=== PATIENT | male | born 1980 | race Caucasian/White ===

== ENCOUNTER 2020-11-19 14:09 | Emergency (ER) | payer MEDICAID, SELFPAY ==
--- NOTE | ~2020-11-19 | XR_ITS ---
EXAMINATION: XR HAND, LEFT CLINICAL INFORMATION: Fifth digit pain. Fall injury. COMPARISON: None TECHNIQUE: PA, lateral, and oblique views of the left hand. FINDINGS: Ulnar and dorsal dislocation of the fifth middle phalanx at the fifth PIP joint. Associated tiny avulsion injury at the dorsal base of the fifth middle phalanx. Avulsion injury may reflect injury to the central slip of the fifth extensor tendon. Soft tissue swelling of the fifth digit. No radiopaque foreign body. XR/XR hand LT min 3V IMPRESSION: Left hand: Ulnar and dorsal location of the fifth middle phalanx from the PIP joint. Tiny avulsion fracture at the dorsal base of the fifth phalanx may reflect injury to the central slip of the fifth extensor tendon.
--- NOTE | ~2020-11-19 | XR_ITS ---
EXAMINATION: XR HAND, LEFT CLINICAL INFORMATION: Status post reduction left fifth finger COMPARISON: Left hand radiographs earlier today at 3:27 PM TECHNIQUE: PA, lateral, and oblique views of the left hand. FINDINGS: Post reduction films demonstrate that the previous dislocation at the right fifth PIP joint is no longer present. The bones and soft tissues are now normal. No fracture. Alignment is anatomic. Joint spaces are maintained. No erosions or soft tissue calcifications. XR/XR hand LT min 3V IMPRESSION: Successful reduction of dislocation with no residual abnormality seen
[2020-11-19 15:14] VITALS: BP 136/81; PULSE 67; RESP 16; TEMP 36.6; O2SAT 99; BMI 29.8
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
[2020-11-19] MEDS: Diphth,Pertus(ACell),Tet Adult 0.5 ML SYRINGE IM (18:11)
== END 2020-11-19 18:30 | disposition home or self-care (01) ==
PROVIDERS: Emergency Provider Emergency Medicine
DX: S63.257A Unspecified dislocation of left little finger, initial encounter (principal); S62.347A Nondisplaced fracture of base of fifth metacarpal bone, left hand, initial encounter for closed fracture; S01.81XA Laceration without foreign body of other part of head, initial encounter; V93.33XA Fall on board other powered watercraft, initial encounter; V92.03XA Drowning and submersion due to fall off other powered watercraft, initial encounter; Y93.19 Activity, other involving water and watercraft; Y92.89 Other specified places as the place of occurrence of the external cause; Y99.9 Unspecified external cause status
CPT/HCPCS: 26770; 73130; 90471; 90715; 99283; 99284

== ENCOUNTER 2020-12-19 08:26 | Emergency (ER) | payer MEDICAID, SELFPAY ==
--- NOTE | ~2020-12-19 | XR_ITS ---
EXAMINATION: XR CHEST CLINICAL INFORMATION: Chest pain. COMPARISON: None TECHNIQUE: Frontal view of the chest was obtained. FINDINGS: No significant abnormality is noted involving the heart, lungs, mediastinum, bony thorax or soft tissues. XR/XR chest 1V IMPRESSION: No acute cardiopulmonary process.
[2020-12-19 10:30] VITALS: BP 146/74; PULSE 52; RESP 18; TEMP 37.1; O2SAT 100; BMI 28.5
--- NOTE | 2020-12-19 10:30 | ED.NAVMDI ---
HPI - Nausea/Vomiting/Diarrhea General Chief complaint: Abdominal Pain Stated complaint: vomiting, multiple complaints Time Seen by Provider: 12/19/20 10:30 Source: patient Mode of arrival: ambulatory Limitations: no limitations History of Present Illness HPI Narrative: 40 yo male otherwise healthy here with nausea and vomiting and epigastric pain since yesterday he c/o abdominal pain as well as burning in throat. He did drink heavily on Friday MD elicited complaint: nausea, vomiting and abdominal pain Pertinent past history: other (drank heavily on Friday) Onset (ago): day(s) (1) Description of vomiting: food contents Associated nausea: Yes Associated abdominal pain: Yes Location of pain: epigastric Radiation: diffuse Pain consistency: constant Severity: moderate Quality: aching and other (burning) Exacerbating factors: eating Relieving factors: none Context: other (heavy ETOH drinking) Associated symptoms: chest pain (burning in chest) Related Data Previous Rx's Medication Instructions Recorded ibuprofen 600 mg tablet 600 mg PO Q6H PRN #60 tab 11/19/20 famotidine 20 mg tablet (Pepcid) 20 mg PO DAILY PRN #30 tab 12/19/20 ondansetron 4 mg disintegrating 4 mg PO Q8H PRN #20 tab 12/19/20 tablet Allergies Allergy/AdvReac Type Severity Reaction Status Date / Time No Known Allergies Allergy Unverified 01/13/20 15:18 [No Known Allergies*] Review of Systems Review of Systems: Constitutional : No Weight loss, No Fever, No Chills ENT/Mouth : No sore throat, No Rhinorrhea Eyes: No Swelling, No Redness Cardiovascular : No Chest Pain, No SOB, NoEdema Respiratory : No Cough, No Sputum, No Wheezing Gastrointestinal : Positive Nausea, Positive Vomiting, positive Diarrhea, positive abdominal Pain, No Hematochezia, No Melena Genitourinary : No Dysuria, No Urinary Frequency, No Hematuria, No Urgency Musculoskeletal : No joint pain, No Myalgias, No Joint Swelling Skin : No Skin Lesions, No rash Neuro : No Weakness, No Numbness, No Dizziness, No Headache Psych : No Anxiety/Panic, No Depression Heme/Lymph: No Bruising, No Lymphadenopathy Endocrine : No Polyuria, No Polydipsia All other systems reviewed and are negative. Gastrointestinal: Gastrointestinal: Reports nausea PMFSH Past Medical History Attestation statement: The following information was validated with the patient. Medical History No known health problems Surgical History Hx of appendectomy Social History Social History Alcohol intake: current Alcohol intake frequency: a few times a month Patient Tobacco Use Status: Never used Tobacco Use of substances other than those prescribed or required for medical reasons: No Advance Directives: No Advance Directives Information Provided: No Physical Exam Vital Signs: Vital Signs: Last Vital Signs Temp 98.8 F 12/19/20 10:30 Pulse 58 12/19/20 13:12 Resp 18 12/19/20 13:12 BP 120/61 12/19/20 13:12 Pulse Ox 99 12/19/20 13:12 Body Mass Index 28.5 Appearance: Alert. Oriented X3. No acute distress. Eyes: Pupils equal, round and reactive to light. ENT: Pharynx mild dry MM Neck: Normal inspection. Neck supple. CVS: Normal heart rate and rhythm. Pulses normal. Respiratory: No respiratory distress. Breath sounds normal. Abdomen: Soft and mild diffuse ttp no connell's sign Skin: Skin warm and dry. Normal skin color. Normal skin turgor. Extremities: No lower extremity edema. No calf ttp Neuro: Oriented X 3. No motor deficit. No sensory deficit. Course Course Course Narrative: stable for DC feels much better at this time MDM - Nausea/Vomiting/Diarrhea MDM Narrative Medical decision making narrative: 40 yo male with recent heavy drinking now with vomiting and epigastric pain possible pancreatitis vs ETOH gastritis c/o burning chest pain likely esophagitis - CXR ordered doubt pneumomediastinum, IVF, reassessments dispo per results and findings. Lab Data Result diagrams: 12/19/20 10:53 12/19/20 10:53 Labs: Lab Results 12/19/20 12/19/20 12/19/20 Range/Units 10:53 10:53 10:53 WBC 10.0 (4.8-10.8) X10*3/uL RBC 5.15 (4.60-5.80) X10*6/uL Hgb 15.2 (14.0-18.0) g/dl Hct 44.5 (42-52) % MCV 86.4 (80-98) fL MCH 29.5 (27.0-33.0) pg MCHC 34.2 (31.0-36.0) g/dl RDW 12.3 (11.0-16.0) % Plt Count 351 (160-400) X10*3/uL MPV 9.8 (9.4-12.4) fL Immature Gran % (Auto) 0.3 (0.0-0.4) % Neut % (Auto) 74.3 H (45-73) % Lymph % (Auto) 18.4 L (20-40) % Forrest % (Auto) 6.9 (2-11) % Eos % (Auto) 0.0 (0-4) % Baso % (Auto) 0.1 (0-2) % Lymph # (Auto) 1.8 (1.2-4.9) X10*3/uL Forrest # (Auto) 0.7 (0.1-1.2) X10*3/uL Eos # (Auto) 0.0 (0.0-0.4) X10*3/uL Baso # (Auto) 0.0 (0.0-0.2) X10*3/uL Abs Immat Gran (auto) 0.03 (0.00-0.03) X10*3/uL Absolute Neuts (auto) 7.4 (2.0-8.3) X10*3/uL Absolute Nucleated RBC 0.000 (0.0-0.012) X10*3/uL Nucleated RBC % (auto) 0.0 (0.0-0.2) /100WBC Sodium 143 (135-145) mmol/L Potassium 4.3 (3.3-5.1) mmol/L Chloride 106 (96-108) mmol/L Carbon Dioxide 23 (22-29) mmol/L Anion Gap 18 (12-20) BUN 11 (9-16) mg/dL Creatinine 1.44 H (0.5-1.4) mg/dL Estim Creat Clear Calc 80.8 Estimated GFR 54 Random Glucose 121 H (60-115) mg/dL Calcium 10.6 H (8.4-10.2) mg/dL Magnesium 2.5 (1.6-2.6) mg/dL Total Bilirubin 1.3 H (0.0-1.0) mg/dL Direct Bilirubin 0.5 (0.0-0.5) mg/dL AST 21 (5-37) U/L ALT 22 (0-40) U/L Alkaline Phosphatase 75 (39-117) U/L Total Protein 8.5 H (6.5-8.0) g/dL Albumin 5.1 H (3.5-5.0) g/dL Lipase 39 (8-78) U/L COVID-19 ([facility]) (Negative) COVID-19 Clin Com 12/19/20 Range/Units 11:03 WBC (4.8-10.8) X10*3/uL RBC (4.60-5.80) X10*6/uL Hgb (14.0-18.0) g/dl Hct (42-52) % MCV (80-98) fL MCH (27.0-33.0) pg MCHC (31.0-36.0) g/dl RDW (11.0-16.0) % Plt Count (160-400) X10*3/uL MPV (9.4-12.4) fL Immature Gran % (Auto) (0.0-0.4) % Neut % (Auto) (45-73) % Lymph % (Auto) (20-40) % Forrest % (Auto) (2-11) % Eos % (Auto) (0-4) % Baso % (Auto) (0-2) % Lymph # (Auto) (1.2-4.9) X10*3/uL Forrest # (Auto) (0.1-1.2) X10*3/uL Eos # (Auto) (0.0-0.4) X10*3/uL Baso # (Auto) (0.0-0.2) X10*3/uL Abs Immat Gran (auto) (0.00-0.03) X10*3/uL Absolute Neuts (auto) (2.0-8.3) X10*3/uL Absolute Nucleated RBC (0.0-0.012) X10*3/uL Nucleated RBC % (auto) (0.0-0.2) /100WBC Sodium (135-145) mmol/L Potassium (3.3-5.1) mmol/L Chloride (96-108) mmol/L Carbon Dioxide (22-29) mmol/L Anion Gap (12-20) BUN (9-16) mg/dL Creatinine (0.5-1.4) mg/dL Estim Creat Clear Calc Estimated GFR Random Glucose (60-115) mg/dL Calcium (8.4-10.2) mg/dL Magnesium (1.6-2.6) mg/dL Total Bilirubin (0.0-1.0) mg/dL Direct Bilirubin (0.0-0.5) mg/dL AST (5-37) U/L ALT (0-40) U/L Alkaline Phosphatase (39-117) U/L Total Protein (6.5-8.0) g/dL Albumin (3.5-5.0) g/dL Lipase (8-78) U/L COVID-19 ([facility]) Negative (Negative) COVID-19 Clin Com See Note Discharge Plan Discharge Clinical Impression: Acute dehydration Gastritis Qualifiers: Gastritis type: alcoholic Chronicity: acute Gastritis bleeding: without bleeding Qualified Code(s): K29.20 - Alcoholic gastritis without bleeding Vomiting Qualifiers: Vomiting type: unspecified Vomiting Intractability: non-intractable Nausea presence: with nausea Qualified Code(s): R11.2 - Nausea with vomiting, unspecified Patient Disposition: Home, Self-Care Instructions: Gastritis (ED), Dehydration (ED), Acute Nausea and Vomiting (ED) Additional Instructions: return to ED for any worsening symptoms or concerns drink plenty of fluids Prescriptions: New famotidine [Pepcid] 20 mg tablet 20 mg PO DAILY PRN (Reason: abdominal discomfort) Qty: 30 RF: 0 ondansetron 4 mg tablet,disintegrating 4 mg PO Q8H PRN (Reason: nausea and vomiting) Qty: 20 RF: 0 No Action ibuprofen 600 mg tablet 600 mg PO Q6H PRN (Reason: pain) Qty: 60 RF: 0 Stand Alone Forms: Work/School Release
[2020-12-19 10:57] LABS: MANUAL DIFF FLAG NO
[2020-12-19 11:01] LABS: Basophils Percent Auto 0.1 % (0-2); Hematocrit 44.5 % (42-52); Hemoglobin 15.2 g/dl (14.0-18.0); Imm Gran Abs Auto 0.03 X10*3/uL (0.00-0.03); Imm Gran Pct Auto 0.3 % (0.0-0.4); Lymphocytes Absolute Auto 1.8 X10*3/uL (1.2-4.9); Lymphocytes Percent Auto 18.4 % (20-40); Mean Corpuscular HGB Conc 34.2 g/dl (31.0-36.0); Mean Corpuscular Hemoglobin 29.5 pg (27.0-33.0); Mean Corpuscular Volume 86.4 fL (80-98); Mean Platelet Volume 9.8 fL (9.4-12.4); Monocytes Absolute Auto 0.7 X10*3/uL (0.1-1.2); Monocytes Percent Auto 6.9 % (2-11); Neutrophils Absolute Auto 7.4 X10*3/uL (2.0-8.3); Neutrophils Percent Auto 74.3 % (45-73); Platelet Count 351 X10*3/uL (160-400); Red Blood Count 5.15 X10*6/uL (4.60-5.80); Red Cell Distribution Width 12.3 % (11.0-16.0)
[2020-12-19 11:29] LABS: Alanine Aminotransferase 22 U/L (0-40); Albumin Level 5.1 g/dL (3.5-5.0); Alkaline Phosphatase 75 U/L (39-117); Aspartate Amino Transferase 21 U/L (5-37); Bilirubin Direct 0.5 mg/dL (0.0-0.5); Bilirubin Total 1.3 mg/dL (0.0-1.0); Lipase 39 U/L (8-78); Magnesium 2.5 mg/dL (1.6-2.6); Total Protein 8.5 g/dL (6.5-8.0)
[2020-12-19] MEDS: ondansetron HCL 4 MG/2 ML VIAL IVPUSH (11:30)
[2020-12-19] MEDS: Morphine Sulfate 4 MG/ML CARTRIDGE IVPUSH (11:30)
[2020-12-19] MEDS: Famotidine/PF 20 MG/2 ML VIAL IVPUSH (11:30)
[2020-12-19] MEDS: Lactated Ringers 1,000 ML 999 ML IV ×2 (11:30→13:10)
[2020-12-19 11:34] LABS: Anion Gap 18 (12-20); Blood Urea Nitrogen 11 mg/dL (9-16); Carbon Dioxide 23 mmol/L (22-29); Chloride 106 mmol/L (96-108); Creatinine Clr Calc Pharmacy 80.8; Estimated Glomerular Filt Rate 54; Glucose Random 121 mg/dL (60-115); Potassium 4.3 mmol/L (3.3-5.1); Sodium 143 mmol/L (135-145)
[2020-12-19 11:40] LABS: COVID-19 Test Negative (Negative)
[2020-12-19 11:41] LABS: Calcium 10.6 mg/dL (8.4-10.2)
[2020-12-19] MEDS: Metoclopramide HCl 10 MG/2 ML VIAL IVPUSH (13:02)
[2020-12-19] MEDS: Lidocaine HCl Viscous 2 % 15 ML SOLUTION MUCOUS MEM (13:02)
[2020-12-19] MEDS: diphenhydrAMINE HCL 50 MG/ML VIAL 25 MG IVPUSH (13:02)
--- NOTE | 2020-12-19 13:11 | PC.NURSE ---
Pt continued to have a headache. Rglan and benedryl given.
[2020-12-19 13:12] VITALS: BP 120/61; PULSE 58; RESP 18; O2SAT 99
== END 2020-12-19 14:50 | disposition home or self-care (01) ==
PROVIDERS: Emergency Provider Emergency Medicine
DX: K29.20 Alcoholic gastritis without bleeding (principal); R11.2 Nausea with vomiting, unspecified; Z20.822 Contact with and (suspected) exposure to COVID-19; R10.13 Epigastric pain
CPT/HCPCS: 36415; 71045; 80048; 80076; 83690; 83735; 85025; 87635; 96361; 96374; 96375; 99284; J1200; J2270; J2405; J2765

== ENCOUNTER 2021-01-07 17:41 | Emergency (ER) | payer MEDICAID, SELFPAY ==
--- NOTE | ~2021-01-07 | CT_ITS ---
EXAMINATION: CT ABDOMEN AND PELVIS WITH CONTRAST CLINICAL INFORMATION: Epigastric/left upper quadrant pain. Suspect pancreatitis. COMPARISON: None TECHNIQUE: Multidetector volumetric images were obtained from the superior aspect of the liver through the pubic symphysis following administration 85 mL of Omnipaque 350 intravenous contrast. Sagittal and coronal reformatted images were obtained on the technologist's workstation. Oral contrast: No This CT examination was performed using dose optimization techniques as appropriate, variously including the following: *Automated exposure control *Adjustment of mA and/or kV according to patient size (this includes techniques or standardized protocols for targeted exams where dose is matched to indication/reason for exam; i.e. extremities or head) *Use of iterative reconstruction technique DLP: 629 mGy-cm FINDINGS: LUNG BASES: The visualized lung bases are unremarkable. LIVER, GALLBLADDER, AND BILIARY TREE: The liver is normal in size, shape, and attenuation. No focal hepatic lesion or biliary ductal dilatation is present. Gallbladder unremarkable. PANCREAS: Unremarkable. SPLEEN: Unremarkable. ADRENAL GLANDS: Unremarkable. KIDNEYS AND URETERS: The kidneys are normal in size, shape, and attenuation. No hydronephrosis, hydroureter, or calculi seen. No perinephric stranding. BLADDER: Unremarkable. GASTROINTESTINAL TRACT: Stomach, small and large bowel are unremarkable. Appendix not seen, presumably surgically absent. ABDOMINAL WALL: No significant hernia is appreciated. LYMPH NODES: Normal. VASCULAR: Unremarkable. PELVIC VISCERA: Unremarkable. OSSEOUS STRUCTURES: Unremarkable. CT/CT abdomen pelvis w con IMPRESSION: * Normal CT imaging appearance of the pancreas. Please note that CT does not exclude mild or very early pancreatitis. * Unremarkable exam.
[2021-01-07 23:59] VITALS: BP 143/77; PULSE 99; O2SAT 97
--- NOTE | 2021-01-08 00:03 | PC.NURSE ---
EMS handoff and first nurse assessment charted by this RN erroneously, information applies to other pt. see documentation by Rosina GALLAGHER for correct triage info
[2021-01-08 00:04] VITALS: BP 133/75; PULSE 61; RESP 18; O2SAT 98; BMI 29.9
[2021-01-08 00:21] LABS: MANUAL DIFF FLAG NO
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
[2021-01-08 00:22] LABS: Basophils Percent Auto 0.2 % (0-2); Eosinophils Absolute Auto 0.1 X10*3/uL (0.0-0.4); Eosinophils Percent Auto 0.9 % (0-4); Hematocrit 38.1 % (42-52); Hemoglobin 12.9 g/dl (14.0-18.0); Imm Gran Abs Auto 0.02 X10*3/uL (0.00-0.03); Imm Gran Pct Auto 0.2 % (0.0-0.4); Lymphocytes Percent Auto 37.4 % (20-40); Mean Corpuscular HGB Conc 33.9 g/dl (31.0-36.0); Mean Corpuscular Hemoglobin 30.1 pg (27.0-33.0); Mean Corpuscular Volume 88.8 fL (80-98); Mean Platelet Volume 9.5 fL (9.4-12.4); Monocytes Absolute Auto 0.6 X10*3/uL (0.1-1.2); Monocytes Percent Auto 7.8 % (2-11); Neutrophils Absolute Auto 4.3 X10*3/uL (2.0-8.3); Neutrophils Percent Auto 53.5 % (45-73); Platelet Count 284 X10*3/uL (160-400); Red Blood Count 4.29 X10*6/uL (4.60-5.80)
[2021-01-08] MEDS: Ketorolac Tromethamine 15 MG/ML VIAL IVPUSH (00:33)
[2021-01-08] MEDS: 0.9 % Sodium Chloride 2,000 ML 999 ML IV (00:33)
[2021-01-08] MEDS: Acetaminophen 325 MG TABLET 975 MG PO (00:34)
[2021-01-08 00:41] LABS: Alanine Aminotransferase 16 U/L (0-40); Albumin Level 4.4 g/dL (3.5-5.0); Alkaline Phosphatase 71 U/L (39-117); Anion Gap 16 (12-20); Aspartate Amino Transferase 22 U/L (5-37); Bilirubin Total 0.4 mg/dL (0.0-1.0); Blood Urea Nitrogen 13 mg/dL (9-16); Calcium 9.4 mg/dL (8.4-10.2); Carbon Dioxide 21 mmol/L (22-29); Chloride 106 mmol/L (96-108); Creatinine Clr Calc Pharmacy 97.6; Estimated Glomerular Filt Rate > 60; Glucose Random 102 mg/dL (60-115); Lipase 57 U/L (8-78); Potassium 4.1 mmol/L (3.3-5.1); Sodium 139 mmol/L (135-145)
[2021-01-08] MEDS: iohexoL 350 MG/ML 100 ML INFUS..BTL 85 ML IV (01:11)
[2021-01-08] MEDS: Lidocaine HCl Viscous 2 % 15 ML SOLUTION 10 ML MUCOUS MEM (02:19)
[2021-01-08] MEDS: Magnesium Hydrox/Alum Hydrox 30 ML ORAL.SUSP PO (02:19)
== END 2021-01-08 02:57 | disposition home or self-care (01) ==
PROVIDERS: Emergency Provider Student in an Organized Health Care Education/Training Program
DX: K29.70 Gastritis, unspecified, without bleeding (principal); R10.12 Left upper quadrant pain; Z79.899 Other long term (current) drug therapy
CPT/HCPCS: 36415; 74177; 80053; 83690; 85025; 96365; 96375; 99283; 99284; J1885; Q9967

== ENCOUNTER 2021-03-05 08:41 | Emergency (ER) | payer MEDICAID, SELFPAY ==
[2021-03-05 08:49] VITALS: BP 109/75; PULSE 70; RESP 18; TEMP 36.8; O2SAT 100; BMI 27.1
[2021-03-05] MEDS: 0.9 % Sodium Chloride 1,000 ML 999 ML IVCONT ×2 (09:15→10:24)
[2021-03-05 09:18] LABS: MANUAL DIFF FLAG NO
[2021-03-05] MEDS: ondansetron HCL 4 MG/2 ML VIAL IVPUSH (09:19)
[2021-03-05 09:20] LABS: Basophils Percent Auto 0.1 % (0-2); Hematocrit 45.8 % (42.0-52.0); Hemoglobin 15.9 g/dl (14.0-18.0); Imm Gran Abs Auto 0.03 X10*3/uL (0.00-0.03); Imm Gran Pct Auto 0.3 % (0.0-0.4); Lymphocytes Percent Auto 20.5 % (20-40); Mean Corpuscular HGB Conc 34.7 g/dl (31.0-36.0); Mean Corpuscular Hemoglobin 29.9 pg (27.0-33.0); Mean Corpuscular Volume 86.3 fL (80.0-98.0); Mean Platelet Volume 9.9 fL (9.4-12.4); Monocytes Absolute Auto 0.6 X10*3/uL (0.1-1.2); Monocytes Percent Auto 6.3 % (2-11); Neutrophils Absolute Auto 7.2 x10*3/uL (2.0-8.3); Neutrophils Percent Auto 72.8 % (45-73); Platelet Count 330 X10*3/uL (160-400); Red Blood Count 5.31 X10*6/uL (4.60-5.80); Red Cell Distribution Width 12.4 % (11.0-16.0); White Blood Count 9.9 X10*3/uL (4.8-10.8)
[2021-03-05] MEDS: Famotidine/PF 20 MG/2 ML VIAL IVPUSH (09:21)
[2021-03-05] MEDS: Magnesium Hydrox/Alum Hydrox 30 ML ORAL.SUSP PO (09:23)
[2021-03-05] MEDS: Lidocaine HCl Viscous 2 % 15 ML SOLUTION MUCOUS MEM (09:23)
--- NOTE | 2021-03-05 09:38 | ED_ITS ---
HPI - Nausea/Vomiting/Diarrhea General Chief complaint: Nausea/Vomiting/Diarrhea Stated complaint: vomiting Time Seen by Provider: 03/05/21 09:00 Source: patient Mode of arrival: ambulatory History of Present Illness HPI Narrative: 40-year-old male with a past medical history gastritis, s/p appendectomy, presenting to the ED complaining of diffuse abdominal pain, nausea, vomiting since Friday. Reports decreased/inability to tolerate p.o. and chills. Denies fever, diarrhea, constipation, dysuria/hematuria, suspicious food intake, recent travel, ETOH/illicit drug use MD elicited complaint: nausea, vomiting and abdominal pain Related Data Previous Rx's Medication Instructions Recorded ibuprofen 600 mg tablet 600 mg PO Q6H PRN #60 tab 11/19/20 famotidine 20 mg tablet (Pepcid) 20 mg PO DAILY PRN #30 tab 12/19/20 sucralfate 100 mg/mL oral 10 ml PO BID #420 ml 01/08/21 suspension (Carafate) aluminum-mag hydroxide-simethicone 5 ml PO 5XD PRN #30 ml 03/05/21 200 mg-200 mg-20 mg/5 mL oral susp (Maalox Advanced) famotidine 20 mg tablet (Pepcid) 20 mg PO DAILY #14 tab 03/05/21 metoclopramide HCl 10 mg tablet 10 mg PO Q6H PRN #10 tab 03/05/21 (Reglan) ondansetron HCl 4 mg tablet 4 mg PO Q8H PRN #10 tab 03/05/21 (Zofran) Allergies Allergy/AdvReac Type Severity Reaction Status Date / Time No Known Allergies Allergy Verified 01/08/21 00:03 [No Known Allergies*] Review of Systems Review of Systems: Constitutional: No Fever, + Chills, No Fatigue, No Malaise ENT/Mouth: No Ear Pain, No Nasal Congestion, No Sinus Pain, No sore throat Eyes: No Eye Pain, No Swelling, No Vision Changes Cardiovascular: No Chest Pain, No SOB, No Edema, No Palpitations Respiratory: No Cough, No Dyspnea Gastrointestinal: + Nausea, + Vomiting, No Diarrhea, No Constipation, + Abdominal pain Genitourinary: No Dysuria, No Urinary Frequency, No Hematuria,No Flank Pain Musculoskeletal: No joint pain, No Myalgias, No Joint Swelling Skin: No Skin Lesions, No rash Neuro: No Weakness, No Numbness, No Headache Yes all other systems are reviewed and are negative [facility] Past Medical History Attestation statement: The following information was validated with the patient. Medical History No known health problems Surgical History Hx of appendectomy Social History Social History Alcohol intake: current Alcohol intake frequency: holidays/special occasions only Patient Tobacco Use Status: Never used Tobacco Use of substances other than those prescribed or required for medical reasons: No Advance Directives: No Advance Directives Information Provided: No Physical Exam Vital Signs: Vital Signs: Last Vital Signs Temp 98.6 F 03/05/21 10:32 Pulse 55 03/05/21 10:32 Resp 14 03/05/21 10:32 BP 119/59 L 03/05/21 10:32 Pulse Ox 100 03/05/21 10:32 Body Mass Index 27.1 Const: General: cooperative, healthy appearing and no acute distress Orientation/consciousness: patient oriented x3 Limitations: no limitations HENMT: Head: Yes normal to inspection Ears: hearing grossly normal bilaterally General nose exam: Normal external nose present Face and sinus: Yes normal facial exam Eyes: General: appearance normal, both eyes and all related structures EOM: EOMs intact bilaterally Neck: Neck: Yes normal visual inspection and Yes no meningeal signs Resp: Effort & Inspection: normal respiratory effort, not labored and no respiratory distress Cardio: Rate: regular rate Heart sounds: S1 normal heart sound present and S2 normal heart sound present GI: Inspection: Yes normal to inspection Palpation (GI): Soft to palpation, nontender, no guarding and not rigid : General: Yes no CVA tenderness Back/Spine/Pelvis: Back: no CVA tenderness Skin: Rashes: no rashes Wounds: no wounds Neuro: General: patient oriented x3 and no meningeal signs Gait exam ( Neuro): Normal gait present Extrem: General: Yes normal to inspection Course Course Course Narrative: -1048--no leukocytosis elevated, labs otherwise unremarkable. Patient reports mild symptomatic improvement on re-evaluation > will p.o. rossy enge -1135--Patient tolerated p.o. Hayley joanie and saltines without nausea/vomiting 1242--on re-evaluation patient reports symptomatic improvement. Will symptoms by remedies to pharmacy and discussed with patient worrisome signs and symptoms and needed GI follow-up MDM - Nausea/Vomiting/Diarrhea MDM Narrative Medical decision making narrative: 40-year-old male with a past medical history gastritis, s/p appendectomy, presenting to the ED complaining of diffuse abdominal pain, nausea, vomiting since Friday. On exam vital signs stable, NAD, well appearing, abdomen soft/nontender, no CVAT. Concern for gastroenteritis vs gastritis vs ? food poisoning. Rule out metabolic/infectious etiology. Low concern for diverticulitis/pancreatitis/cholecystitis without tenderness on exam. Plan: Labs, UA, IVF, symptomatic treatment, re-evaluated Medical Records Attestation: I reviewed the patient's medical records. Lab Data Attestation: I reviewed the patient's lab results. Result diagrams: 03/05/21 09:13 03/05/21 09:13 Labs: Lab Results 03/05/21 03/05/21 03/05/21 Range/Units 09:13 09:13 11:24 WBC 9.9 (4.8-10.8) X10*3/uL RBC 5.31 (4.60-5.80) X10*6/uL Hgb 15.9 (14.0-18.0) g/dl Hct 45.8 (42.0-52.0) % MCV 86.3 (80.0-98.0) fL MCH 29.9 (27.0-33.0) pg MCHC 34.7 (31.0-36.0) g/dl RDW 12.4 (11.0-16.0) % Plt Count 330 (160-400) X10*3/uL MPV 9.9 (9.4-12.4) fL Immature Gran % (Auto) 0.3 (0.0-0.4) % Neut % (Auto) 72.8 (45-73) % Lymph % (Auto) 20.5 (20-40) % [place] % (Auto) 6.3 (2-11) % Eos % (Auto) 0.0 (0-4) % Baso % (Auto) 0.1 (0-2) % Lymph # (Auto) 2.0 (1.2-4.9) X10*3/uL [place] # (Auto) 0.6 (0.1-1.2) X10*3/uL Eos # (Auto) 0.0 (0.0-0.4) X10*3/uL Baso # (Auto) 0.0 (0.0-0.2) X10*3/uL Abs Immat Gran (auto) 0.03 (0.00-0.03) X10*3/uL Absolute Neuts (auto) 7.2 (2.0-8.3) x10*3/uL Absolute Nucleated RBC 0.000 (0.0-0.012) X10*3/uL Nucleated RBC % (auto) 0.0 (0.0-0.2) /100WBC Sodium 139 (135-145) mmol/L Potassium 3.4 (3.3-5.1) mmol/L Chloride 103 (96-108) mmol/L Carbon Dioxide 22 (22-29) mmol/L Anion Gap 17 (12-20) BUN 16 (9-16) mg/dL Creatinine 1.40 (0.5-1.4) mg/dL Estim Creat Clear Calc 76.2 Estimated GFR 56 Random Glucose 119 H (60-115) mg/dL Calcium 10.1 D (8.4-10.2) mg/dL Magnesium 2.5 (1.6-2.6) mg/dL Total Bilirubin 1.3 H (0.0-1.0) mg/dL Direct Bilirubin 0.5 (0.0-0.5) mg/dL AST 18 (5-37) U/L ALT 21 (0-40) U/L Alkaline Phosphatase 77 (39-117) U/L Total Protein 8.3 H (6.5-8.0) g/dL Albumin 5.0 (3.5-5.0) g/dL Lipase 36 (8-78) U/L Urine Color YELLOW Urine Appearance CLEAR Urine pH 6.5 (5.0-8.0) Ur Specific [place] 1.020 (1.005-1.025) Urine Protein 1+ H (NEG-TRACE) MG/DL Urine Glucose (UA) NEG (NEG) MG/DL Urine Ketones 5 (NEG) MG/DL Urine Blood NEG (NEG) Urine Nitrite NEG (NEG) Ur Leukocyte Esterase NEG (NEG) Urine RBC 0 (0) /HPF Urine WBC 0-2 (0-4) /HPF Ur Squamous Epith Cells NONE /LPF Urine Bacteria NONE /LPF Discharge Plan Discharge Clinical Impression: Nausea & vomiting Qualifiers: Vomiting type: unspecified Vomiting Intractability: non-intractable Qualified Code(s): R11.2 - Nausea with vomiting, unspecified Instructions: Acute Nausea and Vomiting (ED), Acute Abdominal Pain (ED) Additional Instructions: Your blood work was reassuring today in the ED Reglan as an antinausea medication, take as needed In addition Pepcid and Maalox to help with acid reduction Make sure staying hydrated at home Please follow-up with your doctor Avoid spicy/sweet foods, chocolate, anything that may upset her stomach Please follow-up with a clinical trials assistant, call today to make an appointment Return to the ED if your symptoms persist or worsen, unable to eat or drink, fever, persistent nausea/vomiting Prescriptions: New ondansetron HCl [Zofran] 4 mg tablet 4 mg PO Q8H PRN (Reason: nausea and vomiting) Qty: 10 RF: 0 metoclopramide HCl [Reglan] 10 mg tablet 10 mg PO Q6H PRN (Reason: nausea and vomiting) Qty: 10 RF: 0 alum-mag hydroxide-simeth [Maalox Advanced] 200-200-20 mg/5 mL suspension 5 ml PO 5XD PRN (Reason: dyspepsia) Qty: 30 RF: 0 famotidine [Pepcid] 20 mg tablet 20 mg PO DAILY Qty: 14 RF: 0 Discontinued ondansetron 4 mg tablet,disintegrating 4 mg PO Q8H PRN (Reason: nausea and vomiting) Qty: 20 RF: 0 No Action ibuprofen 600 mg tablet 600 mg PO Q6H PRN (Reason: pain) Qty: 60 RF: 0 famotidine [Pepcid] 20 mg tablet 20 mg PO DAILY PRN (Reason: abdominal discomfort) Qty: 30 RF: 0 sucralfate [Carafate] 100 mg/mL suspension 10 ml PO BID Qty: 420 RF: 0 Referrals: Physician,Unknown J [Primary Care Provider] - 2 days Jonas Kennedy MD [Physician] - 5 days
[2021-03-05 09:39] LABS: Alanine Aminotransferase 21 U/L (0-40); Alkaline Phosphatase 77 U/L (39-117); Anion Gap 17 (12-20); Aspartate Amino Transferase 18 U/L (5-37); Bilirubin Direct 0.5 mg/dL (0.0-0.5); Bilirubin Total 1.3 mg/dL (0.0-1.0); Blood Urea Nitrogen 16 mg/dL (9-16); Calcium 10.1 mg/dL (8.4-10.2); Carbon Dioxide 22 mmol/L (22-29); Chloride 103 mmol/L (96-108); Creatinine Clr Calc Pharmacy 76.2; Estimated Glomerular Filt Rate 56; Glucose Random 119 mg/dL (60-115); Lipase 36 U/L (8-78); Magnesium 2.5 mg/dL (1.6-2.6); Potassium 3.4 mmol/L (3.3-5.1); Sodium 139 mmol/L (135-145); Total Protein 8.3 g/dL (6.5-8.0)
[2021-03-05 10:32] VITALS: BP 119/59; PULSE 55; RESP 14; TEMP 37; O2SAT 100
[2021-03-05 11:43] LABS: Appearance Urine CLEAR; Color Urine YELLOW; Glucose Urine UA NEG (NEG); Leukocyte Esterase Urine NEG (NEG); Nitrite Urine NEG (NEG); PH 6.5 (5.0-8.0); UACC Culture Trigger NO; Urine Blood NEG (NEG); Urine Ketones 5 MG/DL (NEG); Urine Protein 1+ MG/DL (NEG-TRACE)
[2021-03-05] MEDS: Metoclopramide HCl 10 MG/2 ML VIAL IVPUSH (11:46)
[2021-03-05] MEDS: Ketorolac Tromethamine 15 MG/ML VIAL IVPUSH (11:46)
[2021-03-05 12:34] LABS: RBC Urine 0 /HPF (0); WBC Urine 0-2 /HPF (0-4)
== END 2021-03-05 12:53 | disposition home or self-care (01) ==
PROVIDERS: Physician Assistant; Emergency Provider Emergency Medicine Emergency Medical Services
DX: R11.2 Nausea with vomiting, unspecified (principal); R10.9 Unspecified abdominal pain; Z79.899 Other long term (current) drug therapy
CPT/HCPCS: 36415; 80048; 80076; 81001; 83690; 83735; 85025; 96361; 96374; 96375; 99284; J1885; J2405; J2765

== ENCOUNTER 2021-07-19 18:53 | Emergency (ER) | payer MEDICAID, SELFPAY ==
[2021-07-19 20:01] VITALS: PULSE 56; RESP 18; TEMP 36.5; O2SAT 99; BMI 33.9
[2021-07-19 20:23] LABS: MANUAL DIFF FLAG NO
[2021-07-19 20:30] LABS: Basophils Percent Auto 0.3 % (0-2); Hematocrit 43.9 % (42.0-52.0); Hemoglobin 15.2 g/dl (14.0-18.0); Imm Gran Abs Auto 0.03 X10*3/uL (0.00-0.03); Imm Gran Pct Auto 0.4 % (0.0-0.4); Lymphocytes Absolute Auto 1.3 X10*3/uL (1.2-4.9); Lymphocytes Percent Auto 17.4 % (20-40); Mean Corpuscular HGB Conc 34.6 g/dl (31.0-36.0); Mean Corpuscular Hemoglobin 30.3 pg (27.0-33.0); Mean Corpuscular Volume 87.5 fL (80.0-98.0); Mean Platelet Volume 9.6 fL (9.4-12.4); Monocytes Absolute Auto 0.4 X10*3/uL (0.1-1.2); Monocytes Percent Auto 4.8 % (2-11); Neutrophils Absolute Auto 5.7 x10*3/uL (2.0-8.3); Neutrophils Percent Auto 77.1 % (45-73); Platelet Count 319 X10*3/uL (160-400); Red Blood Count 5.02 X10*6/uL (4.60-5.80); Red Cell Distribution Width 12.6 % (11.0-16.0); White Blood Count 7.4 X10*3/uL (4.8-10.8)
[2021-07-19 20:43] LABS: Appearance Urine CLEAR; Color Urine YELLOW; Glucose Urine UA NEG (NEG); Leukocyte Esterase Urine NEG (NEG); Nitrite Urine NEG (NEG); UACC Culture Trigger NO; Urine Blood NEG (NEG); Urine Ketones >=80 MG/DL (NEG); Urine Protein 2+ MG/DL (NEG-TRACE)
[2021-07-19 20:44] LABS: Alanine Aminotransferase 23 U/L (0-40); Albumin Level 4.9 g/dL (3.5-5.0); Alkaline Phosphatase 86 U/L (39-117); Anion Gap 21 (12-20); Aspartate Amino Transferase 26 U/L (5-37); Bilirubin Total 1.9 mg/dL (0.0-1.0); Blood Urea Nitrogen 11 mg/dL (9-16); Calcium 10.4 mg/dL (8.4-10.2); Carbon Dioxide 20 mmol/L (22-29); Chloride 103 mmol/L (96-108); Creatinine Clr Calc Pharmacy 98.7; Estimated Glomerular Filt Rate > 60; Glucose Random 103 mg/dL (60-115); Lipase 36 U/L (8-78); Potassium 4.5 mmol/L (3.3-5.1); Sodium 139 mmol/L (135-145); Total Protein 8.2 g/dL (6.5-8.0)
[2021-07-19 20:50] LABS: RBC Urine 0 /HPF (0); WBC Urine 0 /HPF (0-4)
[2021-07-19 20:51] LABS: Bacteria Urine TRACE /LPF; Mucus Urine TRACE /LPF
--- NOTE | 2021-07-20 00:10 | ED.ABDPAIN ---
HPI - Abdominal Pain General Chief Complaint: Abdominal Pain <Yojana An NP - Last Filed: 07/20/21 02:27> Stated Complaint: vomiting,abd pain <Yojana An NP - Last Filed: 07/20/21 02:27> Source: patient <Yojana An NP - Last Filed: 07/20/21 02:27> Mode of arrival: ambulatory <Yojana An NP - Last Filed: 07/20/21 02:27> Limitations: no limitations <Yojana An NP - Last Filed: 07/20/21 02:27> History of Present Illness HPI narrative: 40-year-old male presents with abdominal pain, nausea, vomiting, states that he had been drinking alcohol throughout the night. Has been unable to eat or drink. <Yojana An NP - Last Filed: 07/20/21 02:27> MD elicited complaint: abdominal pain <Yojana An NP - Last Filed: 07/20/21 02:27> Onset (ago): day(s) (1) <Yojana An NP - Last Filed: 07/20/21 02:27> Pain Consistency: intermittent <Yojana An NP - Last Filed: 07/20/21 02:27> Location: diffuse <Yojana An NP - Last Filed: 07/20/21 02:27> Severity: mild <Yojana An NP - Last Filed: 07/20/21 02:27> Quality: aching <Yojana An NP - Last Filed: 07/20/21 02:27> Radiation: none <Yojana An NP - Last Filed: 07/20/21 02:27> Migration to: no migration <Yojana An NP - Last Filed: 07/20/21 02:27> Exacerbating factors: eating and vomiting <Yojana An NP - Last Filed: 07/20/21 02:27> Relieving factors: nothing <Yojana An NP - Last Filed: 07/20/21 02:27> Associated symptoms: nausea and vomiting <Yojana An NP - Last Filed: 07/20/21 02:27> Related Data Home Medications: Previous Rx's Medication Instructions Recorded ibuprofen 600 mg tablet 600 mg PO Q6H PRN #60 tab 11/19/20 famotidine 20 mg tablet (Pepcid) 20 mg PO DAILY PRN #30 tab 12/19/20 sucralfate 100 mg/mL oral 10 ml PO BID #420 ml 01/08/21 suspension (Carafate) aluminum-mag hydroxide-simethicone 5 ml PO 5XD PRN #30 ml 03/05/21 200 mg-200 mg-20 mg/5 mL oral susp (Maalox Advanced) famotidine 20 mg tablet (Pepcid) 20 mg PO DAILY #14 tab 03/05/21 metoclopramide HCl 10 mg tablet 10 mg PO Q6H PRN #10 tab 03/05/21 (Reglan) ondansetron HCl 4 mg tablet 4 mg PO Q8H PRN #10 tab 03/05/21 (Zofran) ondansetron 4 mg disintegrating 4 mg PO Q8H PRN #10 tab 07/20/21 tablet <Yojana An NP - Last Filed: 07/20/21 02:27> Allergies/Adverse Reactions: Allergies Allergy/AdvReac Type Severity Reaction Status Date / Time No Known Allergies Allergy Verified 07/19/21 20:00 [No Known Allergies*] <Yojana An NP - Last Filed: 07/20/21 02:27> Review of Systems Review of Systems Constitutional: No Weight loss, No Fever, No Chills, No Night Sweats, No Fatigue, No Malaise ENT/Mouth: No Hearing loss, No Ear Pain, No Nasal Congestion, No Sinus Pain, No Hoarseness, No sore throat, No Rhinorrhea, No Swallowing Difficulty Eyes: No Eye Pain, No Swelling, No Redness, No Foreign Body, No Discharge, No Vision Changes Cardiovascular: No Chest Pain, No SOB, No Dyspnea on Exertion, No Orthopnea, No Edema, No Palpitations Respiratory: No Cough, No Sputum, No Wheezing, No Smoke Exposure, No Dyspnea Gastrointestinal: Positive Nausea, Positive Vomiting, no Diarrhea, positive abdominal Pain, No Hematochezia, No Melena Genitourinary: no irregular bleeding, No Dysuria, No Urinary Frequency, No Hematuria, No Urinary Incontinence, No Urgency, No Flank Pain, No Urinary Flow Changes, No Hesitancy Musculoskeletal: No joint pain, No Myalgias, No Joint Swelling Skin: No Skin Lesions, No rash Neuro: No Weakness, No Numbness, No Paresthesias, No Loss of Consciousness, No Dizziness, No Headache Psych: No Anxiety/Panic, No Depression, No SI/HI/AH/VH, No Social Issues Heme/Lymph: No Bruising, No Bleeding,No Lymphadenopathy Endocrine: No Polyuria, No Polydipsia, No Temperature Intolerance <Yojana An NP - Last Filed: 07/20/21 02:27> Yes all other systems are reviewed and are negative <Yojana An NP - Last Filed: 07/20/21 02:27> [facility] Past Medical History Attestation statement: The following information was validated with the patient. <Yojana An NP - Last Filed: 07/20/21 02:27> Source: old records reviewed <Yojana An NP - Last Filed: 07/20/21 02:27> Medical History: Medical History No known health problems <Yojana An NP - Last Filed: 07/20/21 02:27> Surgical History: Surgical History Hx of appendectomy <Yojana An NP - Last Filed: 07/20/21 02:27> Social History Social History: Social History Alcohol intake: current Alcohol intake frequency: a few times a week Patient Tobacco Use Status: Current someday Tobacco user Use of substances other than those prescribed or required for medical reasons: No Advance Directives: No <Yojana An NP - Last Filed: 07/20/21 02:27> Physical Exam ED Vital Signs: Vital Signs - 24 hr 07/19/21 20:01 07/20/21 00:58 07/20/21 01:04 Temperature 97.7 F Pulse Rate 56 51 52 Respiratory Rate 18 20 18 Blood Pressure 155/80 H Pulse Oximetry 99 100 100 BMI result Body Mass Index 33.9 <Yojana An NP - Last Filed: 07/20/21 02:27> Appearance: Alert. Oriented X3. Mild distress. Eyes: Pupils equal, round and reactive to light. Sclera nonicteric. ENT: Pharynx normal. Neck: Normal inspection. Neck supple. CVS: Normal heart rate and rhythm. Pulses normal. Respiratory: No respiratory distress. Breath sounds normal. Abdomen: Soft and nontender. Skin: Skin warm and dry. Normal skin color. Normal skin turgor. Extremities: Gait well-balanced well coordinated. Neuro: No motor deficit. No sensory deficit. Cranial nerves 2-12 intact. <Yojana An NP - Last Filed: 07/20/21 02:27> Course Course Course Narrative: 40-year-old male presents with 1 day of nausea vomiting abdominal pain. States that he had at least 6 beers and possibly 6 shots last night. Does not report any other illicit drug use or marijuana consumption. Patient is afebrile, denies ever having a fever. No past history of pancreatitis. Lab values were drawn while patient was in the emergency department waiting room, all of which are unremarkable. Will treat with saline, Reglan and Benadryl. 02:20 patient states to feel much better, no longer dry heaving. Able to tolerate p.o. fluid. Plan of care is to discharge home. Patient verbalized understanding of and agrees to plan of care discharge home. Verbalized understanding of signs and symptoms indicating need for emergent intervention. <ASHWINI Pearson Last Filed: 07/20/21 02:27> MDM - Abdominal Pain MDM Narrative Medical decision making narrative: Alcohol gastritis <ASHWINI Pearson Last Filed: 07/20/21 02:27> Differential Diagnosis Differential diagnosis: Likely abdominal pain, gastritis and pancreatitis <ASHWINI Pearson Last Filed: 07/20/21 02:27> Medical Records Attestation: I reviewed the patient's medical records. <ASHWINI Pearson Last Filed: 07/20/21 02:27> Lab Data Attestation: I reviewed the patient's lab results. <ASHWINI Pearson Last Filed: 07/20/21 02:27> Result diagrams: : 07/19/21 20:18 07/19/21 20:18 <Yojana An NP - Last Filed: 07/20/21 02:27> Labs: Lab Results 07/19/21 07/19/21 07/19/21 Range/Units 20:18 20:18 20:18 WBC 7.4 (4.8-10.8) X10*3/uL RBC 5.02 (4.60-5.80) X10*6/uL Hgb 15.2 (14.0-18.0) g/dl Hct 43.9 (42.0-52.0) % MCV 87.5 (80.0-98.0) fL MCH 30.3 (27.0-33.0) pg MCHC 34.6 (31.0-36.0) g/dl RDW 12.6 (11.0-16.0) % Plt Count 319 (160-400) X10*3/uL MPV 9.6 (9.4-12.4) fL Immature Gran % (Auto) 0.4 (0.0-0.4) % Neut % (Auto) 77.1 H (45-73) % Lymph % (Auto) 17.4 L (20-40) % Gilchrist % (Auto) 4.8 (2-11) % Eos % (Auto) 0.0 (0-4) % Baso % (Auto) 0.3 (0-2) % Lymph # (Auto) 1.3 (1.2-4.9) X10*3/uL [place] # (Auto) 0.4 (0.1-1.2) X10*3/uL Eos # (Auto) 0.0 (0.0-0.4) X10*3/uL Baso # (Auto) 0.0 (0.0-0.2) X10*3/uL Abs Immat Gran (auto) 0.03 (0.00-0.03) X10*3/uL Absolute Neuts (auto) 5.7 (2.0-8.3) x10*3/uL Absolute Nucleated RBC 0.000 (0.0-0.012) X10*3/uL Nucleated RBC % (auto) 0.0 (0.0-0.2) /100WBC Sodium 139 (135-145) mmol/L Potassium 4.5 D (3.3-5.1) mmol/L Chloride 103 (96-108) mmol/L Carbon Dioxide 20 L (22-29) mmol/L Anion Gap 21 H (12-20) BUN 11 (9-16) mg/dL Creatinine 1.28 (0.5-1.4) mg/dL Estim Creat Clear Calc 98.7 Estimated GFR > 60 Random Glucose 103 (60-115) mg/dL Calcium 10.4 H (8.4-10.2) mg/dL Total Bilirubin 1.9 H (0.0-1.0) mg/dL AST 26 D (5-37) U/L ALT 23 (0-40) U/L Alkaline Phosphatase 86 (39-117) U/L Total Protein 8.2 H (6.5-8.0) g/dL Albumin 4.9 (3.5-5.0) g/dL Lipase 36 Cancelled (8-78) U/L Urine Color Urine Appearance Urine pH (5.0-8.0) Ur Specific [place] (1.005-1.025) Urine Protein (NEG-TRACE) MG/DL Urine Glucose (UA) (NEG) MG/DL Urine Ketones (NEG) MG/DL Urine Blood (NEG) Urine Nitrite (NEG) Ur Leukocyte Esterase (NEG) Urine RBC (0) /HPF Urine WBC (0-4) /HPF Ur Squamous Epith Cells /LPF Urine Bacteria /LPF Urine Mucus /LPF 07/19/21 Range/Units 20:27 WBC (4.8-10.8) X10*3/uL RBC (4.60-5.80) X10*6/uL Hgb (14.0-18.0) g/dl Hct (42.0-52.0) % MCV (80.0-98.0) fL MCH (27.0-33.0) pg MCHC (31.0-36.0) g/dl RDW (11.0-16.0) % Plt Count (160-400) X10*3/uL MPV (9.4-12.4) fL Immature Gran % (Auto) (0.0-0.4) % Neut % (Auto) (45-73) % Lymph % (Auto) (20-40) % Gilchrist % (Auto) (2-11) % Eos % (Auto) (0-4) % Baso % (Auto) (0-2) % Lymph # (Auto) (1.2-4.9) X10*3/uL [place] # (Auto) (0.1-1.2) X10*3/uL Eos # (Auto) (0.0-0.4) X10*3/uL Baso # (Auto) (0.0-0.2) X10*3/uL Abs Immat Gran (auto) (0.00-0.03) X10*3/uL Absolute Neuts (auto) (2.0-8.3) x10*3/uL Absolute Nucleated RBC (0.0-0.012) X10*3/uL Nucleated RBC % (auto) (0.0-0.2) /100WBC Sodium (135-145) mmol/L Potassium (3.3-5.1) mmol/L Chloride (96-108) mmol/L Carbon Dioxide (22-29) mmol/L Anion Gap (12-20) BUN (9-16) mg/dL Creatinine (0.5-1.4) mg/dL Estim Creat Clear Calc Estimated GFR Random Glucose (60-115) mg/dL Calcium (8.4-10.2) mg/dL Total Bilirubin (0.0-1.0) mg/dL AST (5-37) U/L ALT (0-40) U/L Alkaline Phosphatase (39-117) U/L Total Protein (6.5-8.0) g/dL Albumin (3.5-5.0) g/dL Lipase (8-78) U/L Urine Color YELLOW Urine Appearance CLEAR Urine pH 7.0 (5.0-8.0) Ur Specific [place] 1.010 (1.005-1.025) Urine Protein 2+ H (NEG-TRACE) MG/DL Urine Glucose (UA) NEG (NEG) MG/DL Urine Ketones >=80 (NEG) MG/DL Urine Blood NEG (NEG) Urine Nitrite NEG (NEG) Ur Leukocyte Esterase NEG (NEG) Urine RBC 0 (0) /HPF Urine WBC 0 (0-4) /HPF Ur Squamous Epith Cells NONE /LPF Urine Bacteria TRACE /LPF Urine Mucus TRACE /LPF <Yojana An NP - Last Filed: 07/20/21 02:27> Discharge Plan Discharge Clinical Impression: Nausea & vomiting, Acute alcoholic gastritis <ASHWINI Peasron Last Filed: 07/20/21 02:27> Patient Disposition: Home, Self-Care <Yojana An NP - Last Filed: 07/20/21 02:27> Instructions: Gastritis (ED), Acute Nausea and Vomiting (ED) <ASHWINI Pearson Last Filed: 07/20/21 02:27> Additional Instructions: You were evaluated for abdominal pain, nausea and vomiting after drinking alcohol. Lab values were unremarkable. Please use Zofran as needed for nausea. Thank you for choosing this emergency department for evaluation. Please follow-up with primary care physician as needed. Return to the emergency department for any new, concerning, or worsening symptoms. <Yojana An NP - Last Filed: 07/20/21 02:27> Prescriptions: New ondansetron 4 mg tablet,disintegrating 4 mg PO Q8H PRN (Reason: nausea and vomiting) Qty: 10 0RF No Action ibuprofen 600 mg tablet 600 mg PO Q6H PRN (Reason: pain) Qty: 60 0RF famotidine [Pepcid] 20 mg tablet 20 mg PO DAILY PRN (Reason: abdominal discomfort) Qty: 30 0RF sucralfate [Carafate] 100 mg/mL suspension 10 ml PO BID Qty: 420 0RF ondansetron HCl [Zofran] 4 mg tablet 4 mg PO Q8H PRN (Reason: nausea and vomiting) Qty: 10 0RF metoclopramide HCl [Reglan] 10 mg tablet 10 mg PO Q6H PRN (Reason: nausea and vomiting) Qty: 10 0RF alum-mag hydroxide-simeth [Maalox Advanced] 200-200-20 mg/5 mL suspension 5 ml PO 5XD PRN (Reason: dyspepsia) Qty: 30 0RF Rx Instructions: administer between meals and at bedtime famotidine [Pepcid] 20 mg tablet 20 mg PO DAILY Qty: 14 0RF <ASHWINI Pearson Last Filed: 07/20/21 02:27> Stand Alone Forms: Work/School Release <ASHWINI Pearson Last Filed: 07/20/21 02:27>
[2021-07-20] MEDS: diphenhydrAMINE HCL 50 MG/ML VIAL 25 MG IVPUSH (00:57)
[2021-07-20] MEDS: Metoclopramide HCl 10 MG/2 ML VIAL IVPUSH (00:57)
[2021-07-20] MEDS: 0.9 % Sodium Chloride 1,000 ML 999 ML IVCONT (00:57)
[2021-07-20 00:58] VITALS: PULSE 51; RESP 20; O2SAT 100
[2021-07-20 01:04] VITALS: BP 155/80; PULSE 52; RESP 18; O2SAT 100
--- NOTE | 2021-07-20 01:51 | PC.NURSE ---
pt is currently asleep respirations even and unlabored, no vomiting since in the bed
[2021-07-20] MEDS: Ondansetron ODT 4 MG TAB.RAPDIS TRANSLINGU (02:57)
== END 2021-07-20 02:58 | disposition home or self-care (01) ==
PROVIDERS: Emergency Provider Emergency Medicine
DX: R11.2 Nausea with vomiting, unspecified (principal); K29.20 Alcoholic gastritis without bleeding; F17.200 Nicotine dependence, unspecified, uncomplicated
CPT/HCPCS: 36415; 80053; 81001; 83690; 85025; 96361; 96374; 96375; 99284; J1200; J2765

== ENCOUNTER 2022-04-13 16:57 | Emergency (ER) | payer MEDICAID, SELFPAY ==
--- NOTE | ~2022-04-13 | CT_ITS ---
EXAMINATION: CT ABDOMEN AND PELVIS WITHOUT CONTRAST CLINICAL INFORMATION: Generalized abdominal pain/nausea/vomiting . COMPARISON: 01/08/2021. TECHNIQUE: Multidetector volumetric imaging was performed from the superior aspect of the liver through the pubic symphysis without contrast per renal stone protocol. Sagittal and coronal reformatted images were obtained on the technologist workstation. This CT examination was performed using dose optimization techniques as appropriate, variously including the following: *Automated exposure control *Adjustment of mA and/or kV according to patient size (this includes techniques or standardized protocols for targeted exams where dose is matched to indication/reason for exam; i.e. extremities or head) *Use of iterative reconstruction technique DLP: 595 mGy-cm. FINDINGS: LUNG BASES: The visualized lung bases are unremarkable. LIVER, GALLBLADDER, BILIARY TREE: The non-contrast liver is normal in size, shape, and attenuation. No focal hepatic lesion or biliary ductal dilatation is present. The gallbladder is unremarkable with no evidence of radiopaque gallstones, gallbladder wall thickening, or obvious pericholecystic inflammatory changes. PANCREAS: Unremarkable. SPLEEN: Unremarkable. ADRENAL GLANDS: Unremarkable. KIDNEYS AND URETERS: The kidneys are normal in size, shape, and attenuation. No hydronephrosis, hydroureter, or calculi seen. No perinephric stranding. BLADDER: Unremarkable. GASTROINTESTINAL TRACT: Scattered colonic diverticulosis seen but no colonic wall thickening or pericolonic inflammatory change to suggest diverticulitis. Visualized small bowel unremarkable. The appendix is not visualized ABDOMINAL WALL: Tiny fat-containing periumbilical hernia LYMPHOVASCULAR STRUCTURES: No lymphadenopathy. The aorta is unremarkable.. PELVIC VISCERA: Unremarkable. OSSEUS STRUCTURES: Unremarkable. CT/CT abdomen pelvis wo IV con IMPRESSION: No acute intra-abdominal process seen. Scattered diverticulosis but no evidence for diverticulitis.
[2022-04-13 17:11] VITALS: BP 135/75; PULSE 64; RESP 20; TEMP 36.6; O2SAT 99; BMI 27.1
[2022-04-13] MEDS: Ondansetron ODT 4 MG TAB.RAPDIS TRANSLINGU (17:18)
[2022-04-13 17:42] LABS: Hematocrit 44.8 % (42.0-52.0); Hemoglobin 15.6 g/dl (14.0-18.0); Mean Corpuscular HGB Conc 34.8 g/dl (31.0-36.0); Mean Corpuscular Hemoglobin 30.4 pg (27.0-33.0); Mean Corpuscular Volume 87.2 fL (80.0-98.0); Mean Platelet Volume 9.5 fL (9.4-12.4); Platelet Count 343 X10*3/uL (160-400); Red Blood Count 5.14 X10*6/uL (4.60-5.80); Red Cell Distribution Width 12.4 % (11.0-16.0); White Blood Count 10.7 X10*3/uL (4.8-10.8)
--- NOTE | 2022-04-13 17:42 | ED.ABDPAIN ---
HPI - Abdominal Pain General Chief Complaint: Abdominal Pain <JIMY Sumner Last Filed: 04/13/22 17:43> Stated Complaint: vomiting <JIMY Sumner Last Filed: 04/13/22 17:43> Time Seen by Provider: 04/14/22 00:38 <JIMY Sumner Last Filed: 04/13/22 17:43> Source: patient <JIMY Gallego Last Filed: 04/14/22 02:43> Mode of arrival: ambulatory <JIMY Gallego Last Filed: 04/14/22 02:43> Limitations: no limitations <JIMY Gallego Last Filed: 04/14/22 02:43> History of Present Illness HPI narrative: Patient is a 41 year old assigned male at with no reported medical history presenting to the emergency department today with nausea and vomiting. Patient states that he has been nauseous and vomiting over the last 24 hours with vague diffuse abdominal pain. Patient denies any dizziness, lightheadedness, fever, chills, blurry vision, double vision, loss of vision, chest pain, difficulty breathing, shortness of breath, back pain, night sweats, pain with urination, increased urinary frequency, increased urinary urgency, blood in his urine or stool, syncope or a near syncopal episode, recent trauma or falls, bowel incontinence, bladder incontinence, bowel retention, bladder retention, or any other complaints at this time. <JIMY Gallego - Last Filed: 04/14/22 02:43> MD elicited complaint: abdominal pain <JIMY Gallego Last Filed: 04/14/22 02:43> Pertinent past history: none <JIMY Gallego Last Filed: 04/14/22 02:43> Onset (ago): day(s) (1) <JIMY Gallego Last Filed: 04/14/22 02:43> Pain Consistency: constant <JIMY Gallego Last Filed: 04/14/22 02:43> Location: diffuse <JIMY Gallego Last Filed: 04/14/22 02:43> Severity: mild <JIMY Gallego Last Filed: 04/14/22 02:43> Pain scale (0-10): 3 <JIMY Gallego Last Filed: 04/14/22 02:43> Quality: aching and dull <JIMY Galelgo Last Filed: 04/14/22 02:43> Radiation: none <JIMY Gallego Last Filed: 04/14/22 02:43> Exacerbating factors: nothing <JIMY Gallego Last Filed: 04/14/22 02:43> Relieving factors: nothing <JIMY Gallego Last Filed: 04/14/22 02:43> Associated symptoms: nausea and vomiting <JIMY Gallego Last Filed: 04/14/22 02:43> Related Data Home Medications: Previous Rx's Medication Instructions Recorded ibuprofen 600 mg tablet 600 mg PO Q6H PRN pain #60 tabs 11/19/20 famotidine 20 mg tablet (Pepcid) 20 mg PO DAILY PRN abdominal 12/19/20 discomfort #30 tabs sucralfate 100 mg/mL oral 10 ml PO BID #420 mL 01/08/21 suspension (Carafate) aluminum-mag hydroxide-simethicone 5 ml PO 5XD PRN dyspepsia #30 mL 03/05/21 200 mg-200 mg-20 mg/5 mL oral susp (Maalox Advanced) famotidine 20 mg tablet (Pepcid) 20 mg PO DAILY #14 tabs 03/05/21 metoclopramide HCl 10 mg tablet 10 mg PO Q6H PRN nausea and 03/05/21 (Reglan) vomiting #10 tabs ondansetron HCl 4 mg tablet 4 mg PO Q8H PRN nausea and 03/05/21 (Zofran) vomiting #10 tabs ondansetron 4 mg disintegrating 4 mg PO Q8H PRN nausea and 07/20/21 tablet vomiting #10 tabs ondansetron 4 mg disintegrating 4 mg PO Q8H 3 days #9 tabs 04/14/22 tablet <JIMY Sumner Last Filed: 04/13/22 17:43> Allergies/Adverse Reactions: Allergies Allergy/AdvReac Type Severity Reaction Status Date / Time No Known Allergies Allergy Verified 07/19/21 20:00 [No Known Allergies*] <JIMY Sumner Last Filed: 04/13/22 17:43> Review of Systems Constitutional: Reports no additional constitutional complaints, Denies chills, Denies fever(s) and Denies night sweats <JIMY Gallego Last Filed: 04/14/22 02:43> Eyes: Reports no additional eye complaints, Denies blurry vision, Denies change in vision, Denies diplopia, Denies eye discharge, Denies loss of vision and Denies eye pain <JIMY Gallego - Last Filed: 04/14/22 02:43> Denies dizziness <JIMY Gallego - Last Filed: 04/14/22 02:43> Cardiovascular: Reports no additional cardiovascular complaints, Denies chest pain, Denies lightheadedness, Denies Loss of Consciousness and Denies dyspnea <JIMY Gallego Last Filed: 04/14/22 02:43> Respiratory: Reports no additional respiratory complaints and Denies dyspnea <JIMY Gallego - Last Filed: 04/14/22 02:43> Gastrointestinal: Reports no additional gastrointestinal complaints, Reports abdominal pain, Denies melena, Denies hematochezia, Denies change in bowel habits, Denies change in stool character, Reports nausea and Reports vomiting <JIMY Gallego Last Filed: 04/14/22 02:43> Genitourinary: Reports no additional male genitourinary complaints, Denies hematuria, Denies oliguria, Denies difficulty urinating, Denies dysuria, Denies urinary frequency, Denies urinary hesitancy, Denies urinary incontinence and Denies urinary urgency <JIMY Gallego Last Filed: 04/14/22 02:43> Musculoskeletal: Reports no additional musculoskeletal complaints, Denies numbness and Denies tingling <JIMY Gallego - Last Filed: 04/14/22 02:43> Denies dizziness, Denies loss of vision, Denies numbness and Denies tingling <JIMY Gallego - Last Filed: 04/14/22 02:43> Psychiatric: Reports no additional psychiatric complaints <JIMY Gallego Last Filed: 04/14/22 02:43> Endocrine: Reports no additional endocrine complaints <JIMY Gallego Last Filed: 04/14/22 02:43> Hematologic/Lymphatic: Reports no additional hematologic/lymphatic complaints <JIMY Gallego - Last Filed: 04/14/22 02:43> Allergic/Immunologic: Reports no additional allergic/immunologic complaints <JIMY Gallego - Last Filed: 04/14/22 02:43> PMFSH Past Medical History Attestation statement: The following information was validated with the patient. <JIMY Gallego - Last Filed: 04/14/22 02:43> Source: old records reviewed and nursing notes reviewed <JIMY Gallego - Last Filed: 04/14/22 02:43> Medical History: Medical History No known health problems <JIMY Sumner - Last Filed: 04/13/22 17:43> Surgical History: Surgical History Hx of appendectomy <JIMY Sumner - Last Filed: 04/13/22 17:43> Social History Social History: Social History Alcohol intake: current Alcohol intake frequency: a few times a week Patient Tobacco Use Status: Current someday Tobacco user Advance Directives: No Advance Directives Information Provided: Yes <JIMY Sumner - Last Filed: 04/13/22 17:43> Physical Exam ED Vital Signs: Vital Signs - 24 hr 04/13/22 17:11 04/14/22 00:38 04/14/22 02:37 Temperature 97.9 F 98.3 F 98.3 F Pulse Rate 64 61 64 Respiratory Rate 20 18 18 Blood Pressure 135/75 137/73 126/60 Pulse Oximetry 99 100 98 Oxygen Delivery Method Room Air Room Air Room Air BMI result Body Mass Index 27.1 <JIMY Sumner - Last Filed: 04/13/22 17:43> Vital Signs - 24 hr 04/13/22 17:11 04/14/22 00:38 04/14/22 02:37 Temperature 97.9 F 98.3 F 98.3 F Pulse Rate 64 61 64 Respiratory Rate 20 18 18 Blood Pressure 135/75 137/73 126/60 Pulse Oximetry 99 100 98 Oxygen Delivery Method Room Air Room Air Room Air BMI result Body Mass Index 27.1 <JIMY Gallego - Last Filed: 04/14/22 02:43> Const General: cooperative, no acute distress, alert and awake <JIMY Gallego - Last Filed: 04/14/22 02:43> Nutritional Appearance: well nourished <JIMY Gallego - Last Filed: 04/14/22 02:43> Orientation/consciousness: patient oriented x3 <JIMY Gallego - Last Filed: 04/14/22 02:43> Limitations: no limitations <JIMY Gallego - Last Filed: 04/14/22 02:43> HENMT Head: Yes normal to inspection and Yes atraumatic <JIMY Gallego - Last Filed: 04/14/22 02:43> Ears: hearing grossly normal bilaterally and external ears normal <JIMY Gallego - Last Filed: 04/14/22 02:43> General nose exam: Normal external nose present, no nasal discharge noted and no epistaxis <JIMY Gallego - Last Filed: 04/14/22 02:43> Face and sinus: Yes normal facial exam, No abrasion and No laceration <JIMY Gallego - Last Filed: 04/14/22 02:43> Mouth: Normal oral and palatal mucosa present, no drooling and no muffled voice <JIMY Gallego - Last Filed: 04/14/22 02:43> Eyes General: appearance normal, both eyes and all related structures <JIMY Gallego - Last Filed: 04/14/22 02:43> Periorbital: periorbital findings normal <JIMY Gallego - Last Filed: 04/14/22 02:43> Eyelids: Yes eyelids normal <JIMY Gallego - Last Filed: 04/14/22 02:43> Conjunctivae: conjunctivae normal <JIMY Gallego - Last Filed: 04/14/22 02:43> Pupils: Equal, round and reactive pupils present <JIMY Gallego - Last Filed: 04/14/22 02:43> EOM: EOMs intact bilaterally <JIMY Gallego - Last Filed: 04/14/22 02:43> Neck Neck: Yes normal visual inspection, Yes full ROM and Yes no lymphadenopathy <Stacey Welch MO - Last Filed: 04/14/22 02:43> Chest Chest palpation & inspection: normal inspection of the chest <Stacey Welch MO - Last Filed: 04/14/22 02:43> Resp Effort & Inspection: normal respiratory effort and able to speak in complete sentences <Stacey Welch MO - Last Filed: 04/14/22 02:43> Auscultation: clear to auscultation bilaterally <Stacey Welch MO - Last Filed: 04/14/22 02:43> Cardio Rate: regular rate <Stacey Welch MO - Last Filed: 04/14/22 02:43> Rhythm: regular rhythm <Stacey Welch MO - Last Filed: 04/14/22 02:43> GI Inspection: Yes normal to inspection <Stacey Welch MO - Last Filed: 04/14/22 02:43> Palpation (GI): Soft to palpation, not firm, nontender, no guarding and not rigid <Stacey Welch MO - Last Filed: 04/14/22 02:43> Neuro General: patient oriented x3 and moves all extremities <Stacey Welch MO - Last Filed: 04/14/22 02:43> Cranial nerves: Yes Equal, round and reactive pupils present <Stacey Welch MO - Last Filed: 04/14/22 02:43> Cognition (Neuro): normal cognition <Stacey Welch MO - Last Filed: 04/14/22 02:43> Motor exam (neuro): 5/5 motor strength present throughout <Stacey Welch MO - Last Filed: 04/14/22 02:43> Sensory Exam: Normal double simultaneous stimulation for sensation <Stacey Welch MO - Last Filed: 04/14/22 02:43> Coordination: [id number] test normal <Stacey Welch MO - Last Filed: 04/14/22 02:43> Extrem General: Yes normal to inspection, Yes full ROM and Yes capillary refill normal <Stacey Welch MO - Last Filed: 04/14/22 02:43> Psych Appearance: grossly normal <JIMY Gallego Last Filed: 04/14/22 02:43> Mental Status: mental status grossly normal <JIMY Gallego Last Filed: 04/14/22 02:43> Affect: normal affect <JIMY Gallego Last Filed: 04/14/22 02:43> Attitude: cooperative <JIMY Gallego - Last Filed: 04/14/22 02:43> Thought process: Normal thought process present <JIMY Gallego Last Filed: 04/14/22 02:43> Thought content: Normal thought content present <JIMY Gallego Last Filed: 04/14/22 02:43> Insight: Good insight present (Psych) <JIMY Gallego Last Filed: 04/14/22 02:43> Course Course Course Narrative: RME- 17:33pm 41yoM presenting to the ED with significant other at bedside with complaints of nausea/vomiting with diffuse abdominal pain that started today. Reports associated chills, fatigue, malaise and subjective fevers. Denies any diarrhea, sore throat, coughing, black or bloody stools, dysuria hematuria or any other symptoms complaints or concerns at this time Plan: Will obtain labs, COVID/RSV/flu swab, CT scan abdomen pelvis with IV contrast. Patient was given 4 mg of p.o. Zofran. Patient is stable will be sent back to the waiting room to be evaluated in the ED. <JIMY Sumner - Last Filed: 04/13/22 17:43> Medical Decision Making Medical Decision Making MDM Narrative: Patient is a 41 year old assigned male at with no reported medical history presenting to the emergency department today with abdominal pain, nausea, and vomiting. Patient's physical exam was unremarkable. Patient's blood work was unremarkable. Patient's abdominal CT showed no acute process. I explained my physical exam findings as well as all test results to the patient. I answered all questions asked by the patient. Patient received IV fluids and antiemetics which he stated helped his symptoms significantly. I stressed the importance of the patient taking his medication as prescribed. I stressed the importance of the patient following up with his primary care provider. I stressed the importance of the patient returning to the emergency department immediately if his symptoms were to worsen or if he were to develop any dizziness, shortness of breath, difficulty breathing, chest pain, blurry vision, loss of vision, nausea, vomiting, abdominal pain, fever, chills, back pain, or any other complaints. Patient verbalized agreement and understanding with this treatment plan and discharge. <JIMY Gallego - Last Filed: 04/14/22 02:43> Differential Diagnosis Differential Diagnoses: The differential diagnosis associated with the presentation includes <JIMY Gallego - Last Filed: 04/14/22 02:43> viral illness, nausea/vomiting <JIMY Gallego - Last Filed: 04/14/22 02:43> Lab Data MDM Lab Attestation statement: I reviewed the patient's lab results. <JIMY Gallego - Last Filed: 04/14/22 02:43> Result Diagrams: : 04/13/22 17:33 04/13/22 17:33 <JIMY Sumner - Last Filed: 04/13/22 17:43> Labs: Lab Results 04/13/22 04/13/22 04/13/22 Range/Units 17:33 17:33 17:33 WBC 10.7 (4.8-10.8) X10*3/uL RBC 5.14 (4.60-5.80) X10*6/uL Hgb 15.6 (14.0-18.0) g/dl Hct 44.8 (42.0-52.0) % MCV 87.2 (80.0-98.0) fL MCH 30.4 (27.0-33.0) pg MCHC 34.8 (31.0-36.0) g/dl RDW 12.4 (11.0-16.0) % Plt Count 343 (160-400) X10*3/uL MPV 9.5 (9.4-12.4) fL Immature Gran % (Auto) 0.4 (0.0-0.4) % Neut % (Auto) 84.0 H (45-73) % Lymph % (Auto) 11.7 L (20-40) % Gregory % (Auto) 3.6 (2-11) % Eos % (Auto) 0.2 (0-4) % Baso % (Auto) 0.1 (0-2) % Lymph # (Auto) 1.3 (1.2-4.9) X10*3/uL Gregory # (Auto) 0.4 (0.1-1.2) X10*3/uL Eos # (Auto) 0.0 (0.0-0.4) X10*3/uL Baso # (Auto) 0.0 (0.0-0.2) X10*3/uL Abs Immat Gran (auto) 0.04 H (0.00-0.03) X10*3/uL Absolute Neuts (auto) 9.0 H (2.0-8.3) x10*3/uL Absolute Nucleated RBC 0.000 (0.0-0.012) X10*3/uL Nucleated RBC % (auto) 0.0 (0.0-0.2) /100WBC Neutrophils % (Manual) Cancelled Band Neutrophils % Cancelled Lymphocytes % (Manual) Cancelled Atypical Lymphs % (Man) Cancelled Monocytes % (Manual) Cancelled Eosinophils % (Manual) Cancelled Basophils % (Manual) Cancelled Metamyelocytes % Cancelled Myelocytes % Cancelled Promyelocytes % Cancelled Blast Cells % (Manual) Cancelled Plasma Cell % (Manual) Cancelled Abs Neuts (Manual) Cancelled Lymphocytes # (Manual) Cancelled Atyp Lymphs # (Manual) Cancelled Monocytes # (Manual) Cancelled Eosinophils # (Manual) Cancelled Basophils # (Manual) Cancelled Metamyelocytes # Cancelled Myelocytes # Cancelled Promyelocytes # Cancelled Blast Cells # Cancelled Plasma Cell # (Manual) Cancelled Nucleated RBCs Cancelled Differential Comment Cancelled Hypersegmented Neuts Cancelled Smudge Cells Cancelled Toxic Granulation Cancelled Toxic Vacuolation Cancelled Dohle Bodies Cancelled Olga Rods Cancelled WBC Morphology Comment Cancelled Platelet Estimate Cancelled Large Platelets Cancelled Giant Platelets Cancelled Plt Morphology Comment Cancelled RBC Morphology Cancelled Polychromasia Cancelled Hypochromasia Cancelled Basophilic Stippling Cancelled Microcytosis Cancelled Macrocytosis Cancelled Spherocytes Cancelled Pappenheimer Bodies Cancelled Sickle Cells Cancelled Target Cells Cancelled Tear Drop Cells Cancelled Ovalocytes Cancelled Stomatocytes Cancelled [place] Bodies Cancelled Blanchard Cells Cancelled Acanthocytes (Spur) Cancelled Rouleaux Cancelled Schistocytes Cancelled Sodium 142 (135-145) mmol/L Potassium 4.2 (3.3-5.1) mmol/L Chloride 105 (96-108) mmol/L Carbon Dioxide 20 L (22-29) mmol/L Anion Gap 21 H (12-20) BUN 13 (9-16) mg/dL Creatinine 1.32 (0.5-1.4) mg/dL Estim Creat Clear Calc 80.0 Estimated GFR 59 Random Glucose 126 H (60-115) mg/dL Calcium 10.7 H (8.4-10.2) mg/dL Magnesium 1.9 (1.6-2.6) mg/dL Total Bilirubin 1.3 H (0.0-1.0) mg/dL Direct Bilirubin 0.4 (0.0-0.5) mg/dL AST 22 (5-37) U/L ALT 41 H (0-40) U/L Alkaline Phosphatase 85 (39-117) U/L Total Protein 8.5 H (6.5-8.0) g/dL Albumin 5.3 H (3.5-5.0) g/dL Lipase 23 (8-78) U/L Urine Color Urine Appearance Urine pH (5.0-9.0) Ur Specific [place] (1.005-1.025) Urine Protein (Neg-Trace) mg/dL Urine Glucose (UA) (Negative) mg/dL Urine Ketones (Negative) mg/dL Urine Blood (Negative) Urine Nitrite (Negative) Ur Leukocyte Esterase (Negative) Urine RBC (0-2) /HPF Urine WBC (0-5) /HPF Ur Squamous Epith Cells (0-2) /HPF Urine Bacteria (None Seen) Hyaline Casts (0-2) /LPF Influenza Type A (PCR) (Negative) Influenza Type B (PCR) (Negative) RSV RNA Qual (PCR) (Negative) SARS-CoV-2 RNA (RT-PCR) (Negative) 04/13/22 04/13/22 Range/Units 17:33 17:49 WBC (4.8-10.8) X10*3/uL RBC (4.60-5.80) X10*6/uL Hgb (14.0-18.0) g/dl Hct (42.0-52.0) % MCV (80.0-98.0) fL MCH (27.0-33.0) pg MCHC (31.0-36.0) g/dl RDW (11.0-16.0) % Plt Count (160-400) X10*3/uL MPV (9.4-12.4) fL Immature Gran % (Auto) (0.0-0.4) % Neut % (Auto) (45-73) % Lymph % (Auto) (20-40) % Gregory % (Auto) (2-11) % Eos % (Auto) (0-4) % Baso % (Auto) (0-2) % Lymph # (Auto) (1.2-4.9) X10*3/uL Gregory # (Auto) (0.1-1.2) X10*3/uL Eos # (Auto) (0.0-0.4) X10*3/uL Baso # (Auto) (0.0-0.2) X10*3/uL Abs Immat Gran (auto) (0.00-0.03) X10*3/uL Absolute Neuts (auto) (2.0-8.3) x10*3/uL Absolute Nucleated RBC (0.0-0.012) X10*3/uL Nucleated RBC % (auto) (0.0-0.2) /100WBC Neutrophils % (Manual) Band Neutrophils % Lymphocytes % (Manual) Atypical Lymphs % (Man) Monocytes % (Manual) Eosinophils % (Manual) Basophils % (Manual) Metamyelocytes % Myelocytes % Promyelocytes % Blast Cells % (Manual) Plasma Cell % (Manual) Abs Neuts (Manual) Lymphocytes # (Manual) Atyp Lymphs # (Manual) Monocytes # (Manual) Eosinophils # (Manual) Basophils # (Manual) Metamyelocytes # Myelocytes # Promyelocytes # Blast Cells # Plasma Cell # (Manual) Nucleated RBCs Differential Comment Hypersegmented Neuts Smudge Cells Toxic Granulation Toxic Vacuolation Dohle Bodies Olga Rods WBC Morphology Comment Platelet Estimate Large Platelets Giant Platelets Plt Morphology Comment RBC Morphology Polychromasia Hypochromasia Basophilic Stippling Microcytosis Macrocytosis Spherocytes Pappenheimer Bodies Sickle Cells Target Cells Tear Drop Cells Ovalocytes Stomatocytes [place] Bodies [place] Cells Acanthocytes (Spur) Rouleaux Schistocytes Sodium (135-145) mmol/L Potassium (3.3-5.1) mmol/L Chloride (96-108) mmol/L Carbon Dioxide (22-29) mmol/L Anion Gap (12-20) BUN (9-16) mg/dL Creatinine (0.5-1.4) mg/dL Estim Creat Clear Calc Estimated GFR Random Glucose (60-115) mg/dL Calcium (8.4-10.2) mg/dL Magnesium (1.6-2.6) mg/dL Total Bilirubin (0.0-1.0) mg/dL Direct Bilirubin (0.0-0.5) mg/dL AST (5-37) U/L ALT (0-40) U/L Alkaline Phosphatase (39-117) U/L Total Protein (6.5-8.0) g/dL Albumin (3.5-5.0) g/dL Lipase (8-78) U/L Urine Color Yellow Urine Appearance Clear Urine pH >= 9.0 (5.0-9.0) Ur Specific [place] >= 1.030 H (1.005-1.025) Urine Protein 300 (3+) H (Neg-Trace) mg/dL Urine Glucose (UA) Negative (Negative) mg/dL Urine Ketones 40 (Negative) mg/dL Urine Blood Negative (Negative) Urine Nitrite Negative (Negative) Ur Leukocyte Esterase Trace H (Negative) Urine RBC 0-2 (0-2) /HPF Urine WBC 0-5 (0-5) /HPF Ur Squamous Epith Cells 0-2 (0-2) /HPF Urine Bacteria None Seen (None Seen) Hyaline Casts 0-2 (0-2) /LPF Influenza Type A (PCR) NEGATIVE (Negative) Influenza Type B (PCR) NEGATIVE (Negative) RSV RNA Qual (PCR) NEGATIVE (Negative) SARS-CoV-2 RNA (RT-PCR) NEGATIVE (Negative) <JIMY Sumner - Last Filed: 04/13/22 17:43> Lab Results 04/13/22 04/13/22 04/13/22 Range/Units 17:33 17:33 17:33 WBC 10.7 (4.8-10.8) X10*3/uL RBC 5.14 (4.60-5.80) X10*6/uL Hgb 15.6 (14.0-18.0) g/dl Hct 44.8 (42.0-52.0) % MCV 87.2 (80.0-98.0) fL MCH 30.4 (27.0-33.0) pg MCHC 34.8 (31.0-36.0) g/dl RDW 12.4 (11.0-16.0) % Plt Count 343 (160-400) X10*3/uL MPV 9.5 (9.4-12.4) fL Immature Gran % (Auto) 0.4 (0.0-0.4) % Neut % (Auto) 84.0 H (45-73) % Lymph % (Auto) 11.7 L (20-40) % Gregory % (Auto) 3.6 (2-11) % Eos % (Auto) 0.2 (0-4) % Baso % (Auto) 0.1 (0-2) % Lymph # (Auto) 1.3 (1.2-4.9) X10*3/uL Gregory # (Auto) 0.4 (0.1-1.2) X10*3/uL Eos # (Auto) 0.0 (0.0-0.4) X10*3/uL Baso # (Auto) 0.0 (0.0-0.2) X10*3/uL Abs Immat Gran (auto) 0.04 H (0.00-0.03) X10*3/uL Absolute Neuts (auto) 9.0 H (2.0-8.3) x10*3/uL Absolute Nucleated RBC 0.000 (0.0-0.012) X10*3/uL Nucleated RBC % (auto) 0.0 (0.0-0.2) /100WBC Neutrophils % (Manual) Cancelled Band Neutrophils % Cancelled Lymphocytes % (Manual) Cancelled Atypical Lymphs % (Man) Cancelled Monocytes % (Manual) Cancelled Eosinophils % (Manual) Cancelled Basophils % (Manual) Cancelled Metamyelocytes % Cancelled Myelocytes % Cancelled Promyelocytes % Cancelled Blast Cells % (Manual) Cancelled Plasma Cell % (Manual) Cancelled Abs Neuts (Manual) Cancelled Lymphocytes # (Manual) Cancelled Atyp Lymphs # (Manual) Cancelled Monocytes # (Manual) Cancelled Eosinophils # (Manual) Cancelled Basophils # (Manual) Cancelled Metamyelocytes # Cancelled Myelocytes # Cancelled Promyelocytes # Cancelled Blast Cells # Cancelled Plasma Cell # (Manual) Cancelled Nucleated RBCs Cancelled Differential Comment Cancelled Hypersegmented Neuts Cancelled Smudge Cells Cancelled Toxic Granulation Cancelled Toxic Vacuolation Cancelled Dohle Bodies Cancelled Olga Rods Cancelled WBC Morphology Comment Cancelled Platelet Estimate Cancelled Large Platelets Cancelled Giant Platelets Cancelled Plt Morphology Comment Cancelled RBC Morphology Cancelled Polychromasia Cancelled Hypochromasia Cancelled Basophilic Stippling Cancelled Microcytosis Cancelled Macrocytosis Cancelled Spherocytes Cancelled Pappenheimer Bodies Cancelled Sickle Cells Cancelled Target Cells Cancelled Tear Drop Cells Cancelled Ovalocytes Cancelled Stomatocytes Cancelled [place] Bodies Cancelled Blanchard Cells Cancelled Acanthocytes (Spur) Cancelled Rouleaux Cancelled Schistocytes Cancelled Sodium 142 (135-145) mmol/L Potassium 4.2 (3.3-5.1) mmol/L Chloride 105 (96-108) mmol/L Carbon Dioxide 20 L (22-29) mmol/L Anion Gap 21 H (12-20) BUN 13 (9-16) mg/dL Creatinine 1.32 (0.5-1.4) mg/dL Estim Creat Clear Calc 80.0 Estimated GFR 59 Random Glucose 126 H (60-115) mg/dL Calcium 10.7 H (8.4-10.2) mg/dL Magnesium 1.9 (1.6-2.6) mg/dL Total Bilirubin 1.3 H (0.0-1.0) mg/dL Direct Bilirubin 0.4 (0.0-0.5) mg/dL AST 22 (5-37) U/L ALT 41 H (0-40) U/L Alkaline Phosphatase 85 (39-117) U/L Total Protein 8.5 H (6.5-8.0) g/dL Albumin 5.3 H (3.5-5.0) g/dL Lipase 23 (8-78) U/L Urine Color Urine Appearance Urine pH (5.0-9.0) Ur Specific [place] (1.005-1.025) Urine Protein (Neg-Trace) mg/dL Urine Glucose (UA) (Negative) mg/dL Urine Ketones (Negative) mg/dL Urine Blood (Negative) Urine Nitrite (Negative) Ur Leukocyte Esterase (Negative) Urine RBC (0-2) /HPF Urine WBC (0-5) /HPF Ur Squamous Epith Cells (0-2) /HPF Urine Bacteria (None Seen) Hyaline Casts (0-2) /LPF Influenza Type A (PCR) (Negative) Influenza Type B (PCR) (Negative) RSV RNA Qual (PCR) (Negative) SARS-CoV-2 RNA (RT-PCR) (Negative) 04/13/22 04/13/22 Range/Units 17:33 17:49 WBC (4.8-10.8) X10*3/uL RBC (4.60-5.80) X10*6/uL Hgb (14.0-18.0) g/dl Hct (42.0-52.0) % MCV (80.0-98.0) fL MCH (27.0-33.0) pg MCHC (31.0-36.0) g/dl RDW (11.0-16.0) % Plt Count (160-400) X10*3/uL MPV (9.4-12.4) fL Immature Gran % (Auto) (0.0-0.4) % Neut % (Auto) (45-73) % Lymph % (Auto) (20-40) % Gregory % (Auto) (2-11) % Eos % (Auto) (0-4) % Baso % (Auto) (0-2) % Lymph # (Auto) (1.2-4.9) X10*3/uL Gregory # (Auto) (0.1-1.2) X10*3/uL Eos # (Auto) (0.0-0.4) X10*3/uL Baso # (Auto) (0.0-0.2) X10*3/uL Abs Immat Gran (auto) (0.00-0.03) X10*3/uL Absolute Neuts (auto) (2.0-8.3) x10*3/uL Absolute Nucleated RBC (0.0-0.012) X10*3/uL Nucleated RBC % (auto) (0.0-0.2) /100WBC Neutrophils % (Manual) Band Neutrophils % Lymphocytes % (Manual) Atypical Lymphs % (Man) Monocytes % (Manual) Eosinophils % (Manual) Basophils % (Manual) Metamyelocytes % Myelocytes % Promyelocytes % Blast Cells % (Manual) Plasma Cell % (Manual) Abs Neuts (Manual) Lymphocytes # (Manual) Atyp Lymphs # (Manual) Monocytes # (Manual) Eosinophils # (Manual) Basophils # (Manual) Metamyelocytes # Myelocytes # Promyelocytes # Blast Cells # Plasma Cell # (Manual) Nucleated RBCs Differential Comment Hypersegmented Neuts Smudge Cells Toxic Granulation Toxic Vacuolation Dohle Bodies [place] Rods WBC Morphology Comment Platelet Estimate Large Platelets Giant Platelets Plt Morphology Comment RBC Morphology Polychromasia Hypochromasia Basophilic Stippling Microcytosis Macrocytosis Spherocytes Pappenheimer Bodies Sickle Cells Target Cells Tear Drop Cells Ovalocytes Stomatocytes [place] Bodies [place] Cells Acanthocytes (Spur) Rouleaux Schistocytes Sodium (135-145) mmol/L Potassium (3.3-5.1) mmol/L Chloride (96-108) mmol/L Carbon Dioxide (22-29) mmol/L Anion Gap (12-20) BUN (9-16) mg/dL Creatinine (0.5-1.4) mg/dL Estim Creat Clear Calc Estimated GFR Random Glucose (60-115) mg/dL Calcium (8.4-10.2) mg/dL Magnesium (1.6-2.6) mg/dL Total Bilirubin (0.0-1.0) mg/dL Direct Bilirubin (0.0-0.5) mg/dL AST (5-37) U/L ALT (0-40) U/L Alkaline Phosphatase (39-117) U/L Total Protein (6.5-8.0) g/dL Albumin (3.5-5.0) g/dL Lipase (8-78) U/L Urine Color Yellow Urine Appearance Clear Urine pH >= 9.0 (5.0-9.0) Ur Specific [place] >= 1.030 H (1.005-1.025) Urine Protein 300 (3+) H (Neg-Trace) mg/dL Urine Glucose (UA) Negative (Negative) mg/dL Urine Ketones 40 (Negative) mg/dL Urine Blood Negative (Negative) Urine Nitrite Negative (Negative) Ur Leukocyte Esterase Trace H (Negative) Urine RBC 0-2 (0-2) /HPF Urine WBC 0-5 (0-5) /HPF Ur Squamous Epith Cells 0-2 (0-2) /HPF Urine Bacteria None Seen (None Seen) Hyaline Casts 0-2 (0-2) /LPF Influenza Type A (PCR) NEGATIVE (Negative) Influenza Type B (PCR) NEGATIVE (Negative) RSV RNA Qual (PCR) NEGATIVE (Negative) SARS-CoV-2 RNA (RT-PCR) NEGATIVE (Negative) <JIMY Gallego - Last Filed: 04/14/22 02:43> Radiology Impression Discussion of test interpretation with radiology: I have reviewed the radiologist's reading. <JIMY Gallego - Last Filed: 04/14/22 02:43> Radiologist Impression: EXAMINATION: CT ABDOMEN AND PELVIS WITHOUT CONTRAST CLINICAL INFORMATION: Generalized abdominal pain/nausea/vomiting . COMPARISON: 01/08/2021. TECHNIQUE: Multidetector volumetric imaging was performed from the superior aspect of the liver through the pubic symphysis without contrast per renal stone protocol. Sagittal and coronal reformatted images were obtained on the technologist workstation. This CT examination was performed using dose optimization techniques as appropriate, variously including the following: *Automated exposure control *Adjustment of mA and/or kV according to patient size (this includes techniques or standardized protocols for targeted exams where dose is matched to indication/reason for exam; i.e. extremities or head) *Use of iterative reconstruction technique DLP: 595 mGy-cm. FINDINGS: LUNG BASES: The visualized lung bases are unremarkable. LIVER, GALLBLADDER, BILIARY TREE: The non-contrast liver is normal in size, shape, and attenuation. No focal hepatic lesion or biliary ductal dilatation is present.? The gallbladder is unremarkable with no evidence of radiopaque gallstones, gallbladder wall thickening, or obvious pericholecystic inflammatory changes. PANCREAS: Unremarkable. SPLEEN: Unremarkable. ADRENAL GLANDS: Unremarkable. KIDNEYS AND URETERS: The kidneys are normal in size, shape, and attenuation. No hydronephrosis, hydroureter, or calculi seen. No perinephric stranding. BLADDER: Unremarkable. GASTROINTESTINAL TRACT: Scattered colonic diverticulosis seen but no colonic wall thickening or pericolonic inflammatory change to suggest diverticulitis. Visualized small bowel unremarkable. The appendix is not visualized ABDOMINAL WALL: Tiny fat-containing periumbilical hernia LYMPHOVASCULAR STRUCTURES: No lymphadenopathy.? The aorta is unremarkable.. PELVIC VISCERA: Unremarkable. OSSEUS STRUCTURES: Unremarkable. CT/CT abdomen pelvis wo IV con IMPRESSION: No acute intra-abdominal process seen. Scattered diverticulosis but no evidence for diverticulitis. Dictated By: Alirio Chadwick MD Signed By: Electronically signed by Alirio Chadwick MD 04/13/22 1850 <JIMY Gallego - Last Filed: 04/14/22 02:43> Medications Administered Discontinued Medications Generic Name Dose Route Start Last Admin Trade Name Freq PRN Reason Stop Dose Admin Sodium Chloride 1,000 mls @ 999 mls/hr 04/14/22 01:15 04/14/22 01:29 Ns IV 04/14/22 02:15 999 mls/hr .Q1H1M ALIZA Administration Promethazine HCl 12.5 mg/ 50.5 mls @ 202 mls/hr 04/14/22 01:11 04/14/22 01:36 Sodium Chloride IV 04/14/22 01:12 202 mls/hr ONCE ONE Administration Morphine Sulfate 4 mg 04/14/22 01:12 04/14/22 01:31 Morphine Sulfate 4 Mg/Ml Cartridge IVPUSH 04/14/22 01:13 4 mg ONCE ONE Administration Protocol Ondansetron HCl 4 mg 04/13/22 17:15 04/13/22 17:18 Ondansetron Odt 4 Mg Tab.Rapdis TRANSLINGU 04/13/22 17:16 4 mg ONCE ONE Administration Ondansetron HCl 4 mg 04/14/22 00:59 04/14/22 01:04 Ondansetron Odt 4 Mg Tab.Rapdis TRANSLINGU 04/14/22 01:00 4 mg ONCE ONE Administration <JIMY Sumner - Last Filed: 04/13/22 17:43> Medications Administered Discontinued Medications Generic Name Dose Route Start Last Admin Trade Name Freq PRN Reason Stop Dose Admin Sodium Chloride 1,000 mls @ 999 mls/hr 04/14/22 01:15 04/14/22 01:29 Ns IV 04/14/22 02:15 999 mls/hr .Q1H1M ALIZA Administration Promethazine HCl 12.5 mg/ 50.5 mls @ 202 mls/hr 04/14/22 01:11 04/14/22 01:36 Sodium Chloride IV 04/14/22 01:12 202 mls/hr ONCE ONE Administration Morphine Sulfate 4 mg 04/14/22 01:12 04/14/22 01:31 Morphine Sulfate 4 Mg/Ml Cartridge IVPUSH 04/14/22 01:13 4 mg ONCE ONE Administration Protocol Ondansetron HCl 4 mg 04/13/22 17:15 04/13/22 17:18 Ondansetron Odt 4 Mg Tab.Rapdis TRANSLINGU 04/13/22 17:16 4 mg ONCE ONE Administration Ondansetron HCl 4 mg 04/14/22 00:59 04/14/22 01:04 Ondansetron Odt 4 Mg Tab.Rapdis TRANSLINGU 04/14/22 01:00 4 mg ONCE ONE Administration <JIMY Gallego - Last Filed: 04/14/22 02:43> Discharge Plan Discharge Clinical Impression: Nausea & vomiting <JIMY Sumner - Last Filed: 04/13/22 17:43> Patient Disposition: Home, Self-Care <JIMY Sumner - Last Filed: 04/13/22 17:43> Instructions: Acute Nausea and Vomiting (ED) <JIMY Sumner - Last Filed: 04/13/22 17:43> Additional Instructions: Follow up with your primary care provider. Return to the emergency department immediately if your symptoms worsen or if you develop any dizziness, shortness of breath, difficulty breathing, chest pain, blurry vision, loss of vision, nausea, vomiting, abdominal pain, fever, chills, back pain, or any other complaints. <JIMY Sumner - Last Filed: 04/13/22 17:43> Prescriptions: New ondansetron 4 mg tablet,disintegrating 4 mg PO Q8H 3 Days Qty: 9 0RF No Action ibuprofen 600 mg tablet 600 mg PO Q6H PRN (Reason: pain) Qty: 60 0RF famotidine [Pepcid] 20 mg tablet 20 mg PO DAILY PRN (Reason: abdominal discomfort) Qty: 30 0RF sucralfate [Carafate] 100 mg/mL suspension 10 ml PO BID Qty: 420 0RF ondansetron HCl [Zofran] 4 mg tablet 4 mg PO Q8H PRN (Reason: nausea and vomiting) Qty: 10 0RF metoclopramide HCl [Reglan] 10 mg tablet 10 mg PO Q6H PRN (Reason: nausea and vomiting) Qty: 10 0RF alum-mag hydroxide-simeth [Maalox Advanced] 200-200-20 mg/5 mL suspension 5 ml PO 5XD PRN (Reason: dyspepsia) Qty: 30 0RF Rx Instructions: administer between meals and at bedtime famotidine [Pepcid] 20 mg tablet 20 mg PO DAILY Qty: 14 0RF ondansetron 4 mg tablet,disintegrating 4 mg PO Q8H PRN (Reason: nausea and vomiting) Qty: 10 0RF <JIMY Sumner - Last Filed: 04/13/22 17:43> Referrals: [facility] [Provider Group] (Call to establish and follow up with a primary care provider. If you already have a primary care provider, please follow up with them. ) [facility] [Provider Group] (Call to establish and follow up with a primary care provider. If you already have a primary care provider, please follow up with them. ) [facility] [Provider Group] (Call to establish and follow up with a primary care provider. If you already have a primary care provider, please follow up with them. ) <JIMY Sumner - Last Filed: 04/13/22 17:43> Stand Alone Forms: Work/School Release <JIMY Sumner - Last Filed: 04/13/22 17:43> Print Language: Moroccan <JIMY Sumner - Last Filed: 04/13/22 17:43>
[2022-04-13 17:53] LABS: Magnesium 1.9 mg/dL (1.6-2.6)
[2022-04-13 17:57] LABS: Alanine Aminotransferase 41 U/L (0-40); Albumin Level 5.3 g/dL (3.5-5.0); Alkaline Phosphatase 85 U/L (39-117); Anion Gap 21 (12-20); Aspartate Amino Transferase 22 U/L (5-37); Bilirubin Direct 0.4 mg/dL (0.0-0.5); Bilirubin Total 1.3 mg/dL (0.0-1.0); Blood Urea Nitrogen 13 mg/dL (9-16); Calcium 10.7 mg/dL (8.4-10.2); Carbon Dioxide 20 mmol/L (22-29); Chloride 105 mmol/L (96-108); Estimated Glomerular Filt Rate 59; Glucose Random 126 mg/dL (60-115); Lipase 23 U/L (8-78); Potassium 4.2 mmol/L (3.3-5.1); Sodium 142 mmol/L (135-145); Total Protein 8.5 g/dL (6.5-8.0)
[2022-04-13 18:02] LABS: Appearance Urine Clear; Color Urine Yellow; Glucose Urine UA Negative (Negative); Leukocyte Esterase Urine Trace (Negative); Nitrite Urine Negative (Negative); PH >= 9.0 (5.0-9.0); Specific Gravity - Urine >= 1.030 (1.005-1.025); UMIC TRIGGER UACC YES; Urine Blood Negative (Negative); Urine Ketones 40 mg/dL (Negative); Urine Protein 300 (3+) mg/dL (Neg-Trace)
[2022-04-13 18:14] LABS: RBC Urine 0-2 /HPF (0-2); Squamous Epithelial Cell Urine 0-2 /HPF (0-2); WBC Urine 0-5 /HPF (0-5)
[2022-04-13 18:15] LABS: Bacteria Urine None Seen (None Seen); Hyaline Casts Urine 0-2 /LPF (0-2)
[2022-04-13 18:23] LABS: Influenza A PCR NEGATIVE (Negative); Influenza B PCR NEGATIVE (Negative); Resp Syncy Virus RNA Qual PCR NEGATIVE (Negative); SARS COV2 PCR INHOUSE NEGATIVE (Negative)
[2022-04-13 22:38] LABS: MANUAL DIFF FLAG NO
[2022-04-13 22:47] LABS: Basophils Percent Auto 0.1 % (0-2); Eosinophils Percent Auto 0.2 % (0-4); Imm Gran Abs Auto 0.04 X10*3/uL (0.00-0.03); Imm Gran Pct Auto 0.4 % (0.0-0.4); Lymphocytes Absolute Auto 1.3 X10*3/uL (1.2-4.9); Lymphocytes Percent Auto 11.7 % (20-40); Monocytes Absolute Auto 0.4 X10*3/uL (0.1-1.2); Monocytes Percent Auto 3.6 % (2-11)
[2022-04-14 00:38] VITALS: BP 137/73; PULSE 61; RESP 18; TEMP 36.8; O2SAT 100
[2022-04-14] MEDS: Ondansetron ODT 4 MG TAB.RAPDIS TRANSLINGU (01:04)
[2022-04-14] MEDS: 0.9 % Sodium Chloride 1,000 ML 999 ML IV (01:29)
[2022-04-14] MEDS: Morphine Sulfate 4 MG/ML CARTRIDGE IVPUSH (01:31)
[2022-04-14 02:37] VITALS: BP 126/60; PULSE 64; RESP 18; TEMP 36.8; O2SAT 98
== END 2022-04-14 02:59 | disposition home or self-care (01) ==
PROVIDERS: Physician Assistant Medical; Emergency Provider Emergency Medicine
DX: R11.2 Nausea with vomiting, unspecified (principal); R10.9 Unspecified abdominal pain; Z20.822 Contact with and (suspected) exposure to COVID-19; F17.200 Nicotine dependence, unspecified, uncomplicated
CPT/HCPCS: 0241U; 36415; 74176; 80048; 80076; 81001; 83690; 83735; 85007; 85025; 85027; 96361; 96374; 96375; 99284; J2270; J2550

== ENCOUNTER 2024-12-05 18:41 | Emergency (ER) | payer OTHER, SELFPAY ==
--- NOTE | ~2024-12-05 | XR_ITS ---
CLINICAL HISTORY: pain, injury Radiographs of the chest and right ribs Comparison: None available Findings: No rib fracture or other acute osseous abnormality. Normal heart size. Normal mediastinal contours. No pneumothorax. No opacity. No pleural effusion. Normal upper abdomen. Impression: No rib fracture. This document has been electronically signed by: Radha Hernadez MD on 12/05/2024 19:56:30
--- NOTE | ~2024-12-05 | XR_ITS ---
CLINICAL HISTORY: pain, injury Radiographs of the right hand, 3 views Comparison: None available Findings: There is lucency and slight cortical irregularity in the 3rd metacarpal diaphysis which extends into the metacarpal head. No dislocation. Mild degenerative change. Bone mineralization is normal. Soft tissue swelling. Impression: Nondisplaced fracture of the 3rd metacarpal. This document has been electronically signed by: Radha Hernadez MD on 12/05/2024 19:59:36
--- NOTE | ~2024-12-05 | XR_ITS ---
CLINICAL HISTORY: pain, injury Radiographs of the left wrist, 4 views Comparison: None available Findings: No fracture or dislocation. No degenerative change. Bone mineralization is normal. Soft tissue swelling. Impression: No fracture. This document has been electronically signed by: Radha Hernadez MD on 12/05/2024 19:59:20
--- NOTE | ~2024-12-05 | XR_ITS ---
CLINICAL HISTORY: pain, injury Radiographs of the right wrist, 4 views Comparison: None available Findings: No fracture or dislocation. No degenerative change. Bone mineralization is normal. Soft tissue swelling. Impression: No fracture. This document has been electronically signed by: Radha Hernadez MD on 12/05/2024 19:57:20
[2024-12-05 19:04] VITALS: BP 138/68; PULSE 68; RESP 16; TEMP 37.2; O2SAT 97; BMI 27.9
--- NOTE | 2024-12-05 19:04 | ED_ITS ---
HPI - General Adult General Chief complaint: Fall Stated complaint: right arm, left wrist possi broken fell from porch Time Seen by Provider: 12/05/24 20:37 Source: patient Mode of arrival: ambulatory Limitations: no limitations History of Present Illness ED Provider: Stacey Welch PA-C HPI narrative: Patient is a 44 year old assigned male at with no reported medical history presenting to the emergency department today with right hand, left wrist, and right rib pain after a fall. Patient states that he was climbing down from a 2nd story porch when he fell and injured his right hand, left wrist, and right ribs. Patient states that he is right hand dominant. Patient denies any head strike or loss of consciousness with the incident. Patient denies any other complaints at this time. Related Data Previous Rx's ?Medication ?Instructions ?Recorded ibuprofen 600 mg tablet 600 mg PO Q6H PRN pain #60 t abs 11/19/20 famotidine 20 mg tablet (Pepcid) 20 mg PO DAILY PRN ab dominal 12/19/20 discomfort #30 tabs sucralfate 100 mg/mL oral 10 ml PO BID #420 mL 1 suspension (Carafate) aluminum-mag hydroxide-simethicone 5 ml PO 5XD PRN dys pepsia #30 mL 03/05/21 200 mg-200 mg-20 mg/5 mL oral susp (Maalox Advanced) famotidine 20 mg tablet (Pepcid) 20 mg PO DAILY #14 ta bs 03/05/21 metoclopramide HCl 10 mg tablet 10 mg PO Q6H PRN nause a and 03/05/21 (Reglan) vomiting #10 tabs ondansetron HCl 4 mg tablet 4 mg PO Q8H PRN nausea and 03/05/21 (Zofran) vomiting #10 tabs ondansetron 4 mg disintegrating 4 mg PO Q8H PRN nausea and 07/20/21 tablet vomiting #10 tabs ondansetron 4 mg disintegrating 4 mg PO Q8H 3 days #9 tabs 04/14/22 tablet Allergies Allergy/AdvReac Type Severity Reaction Status Date / Time No Known Allergies (No Known Allergy Verified 12/05/24 19:06 Allergies*) Review of Systems Constitutional: Constitutional: Reports as per HPI Eyes: Eyes: Reports as per HPI ENT: Reports as per HPI Cardiovascular: Cardiovascular: Reports as per HPI Respiratory: Respiratory: Reports as per HPI Gastrointestinal: Gastrointestinal: Reports as per HPI Genitourinary: Genitourinary: Reports as per HPI Musculoskeletal: Comments: right hand pain left wrist pain right rib pain Integumentary/Breasts: Skin/Breast: Reports as per HPI Neurologic: Reports as per HPI Psychiatric: Psychiatric: Reports as per HPI Endocrine: Endocrine: Reports as per HPI Hematologic/Lymphatic: Hematologic/Lymphatic: Reports as per HPI Allergic/Immunologic: Allergic/Immunologic: Reports as per HPI [facility] Past Medical History Attestation statement: The following information was validated with the patient. Source: old records reviewed and nursing notes reviewed Medical History No known health problems Surgical History Hx of appendectomy Social History Social History Alcohol intake: current Alcohol intake frequency: a few times a week Patient Tobacco Use Status: Current someday Tobacco user Advance Directives: No Advance Directives Information Provided: No Do you have a plan to hurt others: No Plan Physical Exam ED Vital Signs: Vital Signs - 24 hr 12/05/24 19:04 12/05/24 20:59 Temperature 99.0 F 99.0 F Pulse Rate 68 68 Respiratory Rate 16 16 Blood Pressure 138/68 138/68 Pulse Oximetry 97 97 Oxygen Delivery Method Room Air Room Air BMI result Body Mass Index 27.9 Const General: cooperative, no acute distress, alert and awake Nutritional Appearance: well nourished Orientation/consciousness: patient oriented x3 HENMT Head: Yes normal to inspection and Yes atraumatic Ears: hearing grossly normal bilaterally and external ears normal General nose exam: Normal external nose present, no nasal discharge noted and no epistaxis Face and sinus: Yes normal facial exam, No abrasion and No laceration Mouth: Normal oral and palatal mucosa present, no drooling and no muffled voice Eyes General: appearance normal, both eyes and all related structures Periorbital: periorbital findings normal Eyelids: Yes eyelids normal Conjunctivae: conjunctivae normal Pupils: Equal, round and reactive pupils present EOM: EOMs intact bilaterally Neck Neck: Yes normal visual inspection and Yes full ROM Resp Effort & Inspection: normal respiratory effort and able to speak in complete sentences Neuro General: patient oriented x3, moves all extremities and CN's II-XI intact bilaterally Cranial nerves: Yes Equal, round and reactive pupils present Cognition (Neuro): normal cognition Extrem Other: dorsal swelling to the right hand painful palpation of the dorsal right hand patient able to make a fist with the right hand but it is painful General: Yes full ROM and Yes capillary refill normal Psych Appearance: grossly normal Mental Status: mental status grossly normal Affect: normal affect Attitude: cooperative Thought process: Normal thought process present Thought content: Normal thought content present Insight: Good insight present (Psych) Course Course Course Narrative: Rapid medical examination performed in triage by Stacey Welch PA-C. Patient is a 44 year old assigned male at presenting to the emergency department with left wrist pain, right wrist / hand pain, and right rib pain. Patient states that he was climbing down from a 2nd story porch when he fell and injured his right ribs, right hand / wrist, and left wrist. Patient denies hitting his head. Detailed physical exam and review of systems are deferred to the primary operator. Imaging ordered. Patient placed back in the waiting room pending room availability and results. Procedures Orthopedic Splinting/Casting Injury #1: Side: right Upper Extremity Injury Location: hand Upper Extremity Immobilizer: volar splint and mirna tape (3rd and 4th fingers) Medical Decision Making Medical Decision Making MDM Narrative: Patient is a 44 year old assigned male at with no reported medical history presenting to the emergency department today with right hand, left wrist, and right rib pain after a fall. Patient's physical exam was as noted in the physi rosy exam portion of this note. Patient's left wrist and right rib x-rays showed no acute process. Patient's right hand x-ray showed a nondisplaced 3rd metacarpal fracture. I spoke to the orthopedic team who recommended mirna taping the 3rd and 4th fingers of the right hand and a volar splint that restricts movement of the 3rd metacarpal with outpatient follow up. I explained my physical exam findings as well as all test results to the patient. I answered all questions asked by the patient. Patient's right 3rd and 4th fingers were mirna taped without incident. Patient's right hand was placed in a volar splint, without incident. Patient's PMS was intact prior to and after taping and splinting. I stressed the importance of the patient taking his medication as directed (either prescribed or as the over the counter packaging recommends). I stressed the importance of the patient following up with his primary care provider and the orthopedic team. I stressed the importance of the patient retu rning to the emergency department immediately if his symptoms were to worsen or if he were to develop any dizziness, shortness of breath, difficulty breathing, chest pain, blurry vision, loss of vision, nausea, vomiting, abdominal pain, fever, chills, back pain, or any other complaints. Patient verbalized agreement and understanding with this treatment plan and discharge. Differential Diagnosis Differential Diagnoses: The differential diagnosis associated with the presentation includes Right hand fracture Left wrist fracture Right rib fracture Contusion Sprain Strain Admission/Observation Consideration of admission/observation: Escalation of care including a dmission/observation considered Patient would have been admitted to the hospital had his work up had any findings where hospital admission was appropriate and his clinical presentation warranted hospital admission. Consult Healthcare Provider Management of the patient was discussed with: [employer] Cook (spoke with the orthopedic team as noted in the MDM Rationale portion of this note. ) Independent Interpretation I performed an independent interpretation of an: Plain X-Ray Interpretation: My interpretation is in agreement with the radiologist's impression of these imaging studies. CLINICAL HISTORY: pain, injury Radiographs of the chest and right ribs Comparison: None available Findings: No rib fracture or other acute osseous abnormality. Normal heart size. Normal mediastinal contours. No pneumothorax. No opacity. No pleural effusion. Normal upper abdomen. Impression: No rib fracture. This document has been electronically signed by: Radha Hernadez MD on 12/05/2024 19:56:30 Dictated By: Radha Nunez MD Signed By: Electronically signed by Radha Nunez MD 12/05/241956 This document has been electronically signed by: Radha Hernadez MD on 12/05/2024 19:57:20 ADDENDUM: Nondisplaced fracture of the 3rd metacarpal. This document has been electronically signed by: Radha Hernadez MD on 12/05/2024 20:03:34 Addendum Dictated By: Radha Nunez MD Addendum Signed By: Electronically signed by Radha Nunez MD 12/05/242003 CLINICAL HISTORY: pain, injury Radiographs of the right wrist, 4 views Comparison: None available Findings: No fracture or dislocation. No degenerative change. Bone mineralization is normal. Soft tissue swelling. Impression: No fracture. This document has been electronically signed by: Radha Hernadez MD on 12/05/2024 19:57:20 Dictated By: Radha Nunez MD Signed By: Electronically signed by Radha Nunez MD 12/05/241957 CLINICAL HISTORY: pain, injury Radiographs of the right hand, 3 views Comparison: None available Findings: There is lucency and slight cortical irregularity in the 3rd metacarpal diaphysis which extends into the metacarpal head. No dislocation. Mild degenerative change. Bone mineralization is normal. Soft tissue swelling. Impression: Nondisplaced fracture of the 3rd metacarpal. This document has been electronically signed by: Radha Hernadez MD on 12/05/2024 19:59:36 Dictated By: Radha Nunez MD Signed By: Electronically signed by Radha Nunez MD 12/05/241999 CLINICAL HISTORY: pain, injury Radiographs of the left wrist, 4 views Comparison: None available Findings: No fracture or dislocation. No degenerative change. Bone mineralization is normal. Soft tissue swelling. Impression: No fracture. This document has been electronically signed by: Radha Hernadez MD on 12/05/2024 19:59:20 Dictated By: Radha Nunez MD Signed By: Electronically signed by Radha Nunez MD 12/05/241999 Radiology Impression Discussion of test interpretation with radiology: I have reviewed the radiologist's reading. Discharge Plan Discharge Clinical Impression: Fracture of metacarpal Patient Disposition: Home, Self-Care Instructions: Hand Fracture (DC) Additional Instructions: Do NOT get your splint wet. Do NOT remove your splint. If you have any change in sensation, movement, or color of your right fingers - you may loosen the outer RAMY wraps. If you find yourself loosening the RAMY wraps to the point of seeing the white splint material underneath - STOP and proceed to your closest Emergency Department, immediately. Follow up with your primary care provider and the orthopedic team. IF you are prescribed medications and/or you are taking over the counter medications - it is very important you continue to do so as prescribed / directed unless told otherwise. Follow up with a primary care provider. Return to the emergency department immediately if your symptoms worsen or if you develop any numbness, tingling, dizziness, shortness of breath, difficulty breathing, chest pain, blurry vision, loss of vision, nausea, vomiting, abdominal pain, fever, chills, back pain, or any other complaints. If you do not have a primary care provider - call any of the below numbers to establish and follow up with a primary care provider. [facility] Primary Care ([place]) [phone] [place] [address] [place], [address] [facility] Primary Care ([address] [place]) [phone] [address] [facility], [address] [place], [address] [facility] Primary Care ([address] [place]) [phone] [address] [facility], [address] [place], [address] [facility] Primary Care ([place]) [phone] [place] [address], [address] [place], [address] [facility] Family Medicine [phone] [address] [facility], [address] Please see the information below about our Patient Portal. If you are not yet enrolled in the [facility] Patient Portal, you will receive an enrollment email invitation following your visit to any [facility] setting. You may also self-enroll in the Patient Portal by visiting our website: [email or web address] The following information is required to access the Patient Portal: - Your [facility] Medical Record Number - Your personal home email address (must match what is in your electronic medical record, Registration staff can assist with this) - Name - Date of Capabilities of the Patient Portal: - Message some providers - View upcoming appointments - Access your health summary, medical history, and visit history - View current conditions and allergies - View procedure and lab results - View your medications, including guidelines, side effects, and precautions - Complete pre-appointment questionnaires requested by your provider - Ready summary reports of your office visits and procedures To access the Patient Portal Mobile [employer], follow these directions: - Search [employer] in the [employer] Store or [employer] Store - Download the [employer] - Search for [facility] - Enter your login/password Prescriptions: No Action ibuprofen 600 mg tablet 600 mg PO Q6H PRN (Reason: pain) Qty: 60 0RF famotidine [Pepcid] 20 mg tablet 20 mg PO DAILY PRN (Reason: abdominal discomfort) Qty: 30 0RF sucralfate [Carafate] 100 mg/mL suspension 10 ml PO BID Qty: 420 0RF ondansetron HCl [Zofran] 4 mg tablet 4 mg PO Q8H PRN (Reason: nausea and vomiting) Qty: 10 0RF metoclopramide HCl [Reglan] 10 mg tablet 10 mg PO Q6H PRN (Reason: nausea and vomiting) Qty: 10 0RF alum-mag hydroxide-simeth [Maalox Advanced] 200-200-20 mg/5 mL suspension 5 ml PO 5XD PRN (Reason: dyspepsia) Qty: 30 0RF Rx Instructions: administer between meals and at bedtime famotidine [Pepcid] 20 mg tablet 20 mg PO DAILY Qty: 14 0RF ondansetron 4 mg tablet,disintegrating 4 mg PO Q8H PRN (Reason: nausea and vomiting) Qty: 10 0RF ondansetron 4 mg tablet,disintegrating 4 mg PO Q8H 3 Days Qty: 9 0RF Referrals: [facility] Orthopedic Surgeons [Provider Group] Referral Note: Call to establish and follow up with the orthopedic team. Stand Alone Forms: Work/School Release Interventions: ED Discharge Assessment Last Done: 12/05/24 20:59 Discharge Date/Time: 12/05/24 21:00 Print Language: Mongolian
[2024-12-05 20:59] VITALS: BP 138/68; PULSE 68; RESP 16; TEMP 37.2; O2SAT 97
== END 2024-12-05 21:00 | disposition home or self-care (01) ==
PROVIDERS: Emergency Provider Emergency Medicine Emergency Medical Services
DX: S62.91XA Unspecified fracture of right hand, initial encounter for closed fracture (principal); R07.89 Other chest pain; M25.532 Pain in left wrist; M25.531 Pain in right wrist; F17.210 Nicotine dependence, cigarettes, uncomplicated; X58.XXXA Exposure to other specified factors, initial encounter; W19.XXXA Unspecified fall, initial encounter; Y93.9 Activity, unspecified; Y92.9 Unspecified place or not applicable; Y99.8 Other external cause status
CPT/HCPCS: 29125; 71101; 73110; 73130; 99282; 99283

== ENCOUNTER → 2024-12-05 19:06 | Outpatient (BNV) | payer MEDICAID, SELFPAY | PROVIDERS: Visit Provider Radiology Diagnostic Radiology | DX: R07.89 Other chest pain (principal); S62.342A Nondisplaced fracture of base of third metacarpal bone, right hand, initial encounter for closed fracture | CPT/HCPCS: 71101; 73110; 73130 ==